=== PATIENT | female | born 1950 | race Caucasian/White ===

== ENCOUNTER → 2017-11-24 | Outpatient (CLI) | payer OTHER, MEDICARE ==
--- NOTE | 2017-11-25 10:30 | MM ---
Reason for exam: screening (asymptomatic). Last mammogram was performed 1 year and 9 months ago. History: Patient is postmenopausal. Family history of breast cancer in sister at age 68 and breast cancer in aunt. Took estrogen for 8 years. Physical Findings: A clinical breast exam by your physician is recommended on an annual basis and results should be correlated with mammographic findings. MG 3D Screening Mammo W/Cad Bilateral CC and MLO view(s) were taken. Prior study comparison: February 19, 2016, bilateral MG 3d screening mammo w/cad. January 09, 2014, bilateral MG screening mammo w CAD. The breast tissue is heterogeneously dense. This may lower the sensitivity of mammography. Stable benign calcifications. There is no discrete abnormality. No significant changes when compared with prior studies. ASSESSMENT: Benign, BI-RAD 2 RECOMMENDATION: Routine screening mammogram of both breasts in 1 year.
== END | disposition home or self-care (01) ==
LOC: RADMAMWWP 10:19
PROVIDERS: ATTEND Internal Medicine
DX: Z12.31 Encounter for screening mammogram for malignant neoplasm of breast (principal)
CPT/HCPCS: 77063; 77067

== ENCOUNTER → 2019-07-04 | Outpatient (CLI) | payer BC, MEDICARE ==
--- NOTE | 2019-07-09 09:39 | MM ---
Reason for exam: screening (asymptomatic). Last mammogram was performed 1 year and 7 months ago. History: Patient is postmenopausal. Family history of breast cancer in sister at age 68 and breast cancer in aunt. Took hormonal contraceptives for 10 years. Took estrogen for 8 years. Physical Findings: A clinical breast exam by your physician is recommended on an annual basis and results should be correlated with mammographic findings. MG 3D Screening Mammo W/Cad Bilateral CC and MLO view(s) were taken. Prior study comparison: November 24, 2017, bilateral MG 3d screening mammo w/cad. February 19, 2016, bilateral MG 3d screening mammo w/cad. The breast tissue is heterogeneously dense. This may lower the sensitivity of mammography. No significant changes when compared with prior studies. ASSESSMENT: Benign, BI-RAD 2 RECOMMENDATION: Routine screening mammogram of both breasts in 1 year.
== END | disposition home or self-care (01) ==
LOC: RADMAMWWP 06:53
PROVIDERS: ATTEND Internal Medicine
DX: Z12.31 Encounter for screening mammogram for malignant neoplasm of breast (principal)
CPT/HCPCS: 77063; 77067

== ENCOUNTER → 2020-10-14 | Outpatient (CLI) | payer BC, MEDICARE ==
[~2020-10-14] MED LIST: REGADENOSON 0.4 MG/5 ML SYRINGE IV PRN
--- NOTE | 2020-10-14 12:38 | NM ---
EXAMINATION TYPE: NM stress lexiscan cardiolite DATE OF EXAM: 10/14/2020 COMPARISON: NONE HISTORY: I 25.119 TECHNIQUE: After the intravenous administration of 9.5 mCi Tc 99m Sestamibi - Cardiolite resting SPE CT images acquired 45 minutes post injection. The patient received 0.4mg Lexiscan, 25.1 mCi Tc 99m Sestamibi - Stress images obtained [address] injection FINDINGS: Review of stress and rest SPECT images demonstrates decreased uptake along the septum towards the bas e the heart on stress as compared to rest images. Gated analysis shows questionable paradoxical apic al left ventricular wall motion with an estimated left ventricular ejection fraction of 72 %. IMPRESSION: Pharmacologically induced left ventricular myocardial ischemia, consider echocardiographic correlatio n for elevated section fraction and wall motion A Yellow level critical message alert has been initiated for Federico Skaggs MD via the [employer] Critical Results System on 10/14/2020 12:35 PM. This message alert has been sent to Federico Skaggs MD via the preferences provided by the clinician for the receipt of Radiology Critical Findings. Message ID [id number].
--- NOTE | 2020-10-15 08:29 | EST ---
EXERCISE STRESS PROCEDURE: Lexiscan. AGE: 69 SEX: F HT: 5' WT: 170 lbs. PROTOCOL: Lexiscan STAGE: N/A DURATION OF EXERCISE: 5 minutes HEART RATE REST: 68 BLOOD PRESSURE REST: 121/73 MAXIMUM HEART RATE ACHIEVED: 98 MAXIMUM BLOOD PRESSURE: 134/71 85% MPHR: 137 100% MPHR: 149 METS: N/A INDICATIONS: Shortness of breath. CLINICAL INFORMATION: Baseline EKG shows sinus rhythm, normal axis, normal intervals with poor R-wave progression. The patient was given intravenous Lexiscan as per protocol. Did not have chest pain or diagnostic ST-segment depression. CONCLUSIONS: 1. Negative stress test by EKG criteria. 2. Cardiolite portion of the stress test will be reported separately. MMODL / IJN: [id number] /
== END | disposition home or self-care (01) ==
LOC: RADNMMAIN 07:58
PROVIDERS: ATTEND Internal Medicine
DX: I25.9 Chronic ischemic heart disease, unspecified (principal)
CPT/HCPCS: 93017; 78452; A9500; J2785

== ENCOUNTER → 2020-10-23 | Day surgery (SDC) | payer BC, MEDICARE ==
[2020-10-22 10:51] VITALS: BMI 32.2
[~2020-10-23] MED LIST changes: +ALPRAZolam 0.25 MG TAB PO PRN; +ALPRAZolam 0.5 MG TAB PO PRN; +ASPIRIN 325 MG TAB PO STA; +ATORVASTATIN 80 MG TAB PO STA; +HEPARIN SODIUM 1,000 UN/ML (10ML VL) IV ONE; +HEPARIN SODIUM 1,000 UN/ML (10ML VL) ONE; +IOPAMIDOL-370 125ML BTL INJ ONE; +LEVOTHYROXINE 25 MCG TAB PO SCH; +LIDOCAINE 1% INJ 10MG/ML (20 ML MDV) ONE; +LIDOCAINE 1% INJ 10MG/ML (20 ML MDV) SQ ONE; +LORazepam 0.5 MG TAB PO SCH; +MIDAZOLAM 2 MG/2 ML VIAL IV ONE; +NITROGLYCERIN SL TABS 0.4 MG TAB SUBLINGUAL PRN; -REGADENOSON 0.4 MG/5 ML SYRINGE IV PRN; +RX INFO: IV CONTRAST WAS GIVEN 1 EACH MISC MISCELLANE PRN; +SODIUM CHLORIDE 0.9% 1,000 ML IV SCH; +SODIUM CHLORIDE 0.9% 1,000 ML in EMPTY BAG 1 BAG IV ONE; +VENLAFAXINE HCL ER 37.5 MG CAP PO SCH; +VERAPAMIL 2.5 MG/ML 2 ML AMP ONE; +VERAPAMIL SYRINGE (5 MG/10 ML) INTRAARTER ONE; +fentaNYL (PF) 50 MCG/ML 2 ML AMP IV ONE; +fentaNYL (PF) 50 MCG/ML 2 ML AMP ONE
[2020-10-23 06:44] LABS: Basophils # (A) 0.1 k/uL (0-0.2); Basophils % (A) 1 %; Eosinophils # (A) 0.2 k/uL (0-0.7); Eosinophils % (A) 2 %; HCT 40.2 % (34.0-46.0); HGB 14.1 gm/dL (11.4-16.0); Lymphocytes # (A) 2.2 k/uL (1.0-4.8); Lymphocytes % (A) 23 %; MCH 30.4 pg (25.0-35.0); MCV 86.9 fL (80.0-100.0); Mean Platelet Volume 7.1; Monocytes # (A) 0.5 k/uL (0-1.0); Monocytes % (A) 5 %; Neutrophils # (A) 6.7 k/uL (1.3-7.7); Neutrophils % (A) 69 %; Platelet Count 271 k/uL (150-450); RBC 4.62 m/uL (3.80-5.40); RDW 13.7 % (11.5-15.5); WBC 9.7 k/uL (3.8-10.6)
[2020-10-23 06:50] VITALS: RESP 16; TEMP 97.8
[2020-10-23 06:58] LABS: Calcium 9.3 mg/dL (8.4-10.2)
[2020-10-23 08:57] VITALS: PULSE 66
--- NOTE | 2020-10-23 09:37 | CC ---
CARDIAC CATHETERIZATION REPORT PROCEDURE PERFORMED: Cardiac catheterization. INDICATIONS: Mrs. Pena is a 69-year-old female who has been complaining of episode of chest discomfort at times exertional in pattern. She underwent myocardial perfusion imaging that revealed evidence of inducible ischemia. In view of that, recommendation was made regarding cardiac catheterization. The procedures, risks and complications were discussed with the patient, who was in full understanding and agreement. PROCEDURE: Patient was brought to the bean sprout laborer in a fasting semi-sedated state after receiving fentanyl and Benadryl and achieving moderate conscious sedated state. Using Xylocaine anesthesia and Seldinger technique, a 6-Paraguayan sheath was introduced in the right radial artery. Selective right and left coronary angiography performed using 5-Paraguayan 3.5 bend right and left Viviana catheter. Multiple views of the right coronary artery including hemiaxial views were obtained. Following that, a 5-Paraguayan tight pigtail catheter was introduced into the eft ventricle and pressures were calculated. Following that, catheter and sheath were removed. Hemostasis was obtained with deployment of a TR band. There was no immediate complication. Patient was returned to room in stable condition. Of note, the patient received 4000 units intravenous heparin as well as intra-arterial verapamil. FINDINGS: Left main: This is a short size vessel, bifurcating into left circumflex, left anterior descending artery. Left main coronary artery has no evidence of high-grade stenosis. Left anterior descending artery: This is a large-sized vessel reaching to the apex with a wraparound apex segment giving rise to 2 diagonal branches. The second one is larger in caliber. The left anterior descending artery as well as its branches have no evidence of obstructive coronary artery disease. Left circumflex: This is a nondominant vessel giving rise to a proximal large obtuse marginal branch. The second and third obtuse marginal branches are small in caliber. The left circumflex as well as its branches have no evidence of obstructive coronary artery disease. Right coronary artery: This is a dominant vessel, moderate in caliber, giving rise to a PDA and small PLV. The right coronary artery as well as branches have no evidence of obstructive coronary artery disease. LEFT VENTRICULOGRAM: Left ventriculogram was not performed. HEMODYNAMICS: There was no gradient across the aortic valve. The left ventricle end-diastolic pressure was 12-14 mmHg. CONCLUSION: 1. Normal coronary arteries. 2. Normal left ventricular end-diastolic pressure. RECOMMENDATION: In view of finding anatomy, we recommend continued medical therapy with aggressive coronary risk modifications that have been initiated. Those findings and recommendation were discussed with the patient and her family and they are in full understanding and agreement. Duration of sedation is 22 minutes. MMLUZL / IJN: [id number] /
--- NOTE | 2020-10-23 09:40 | LTR ---
10/23/2020 RE: Jessie Pena Dear Dr. Skaggs: I had the pleasure to perform cardiac catheterization on Mrs. Pena at [facility] on October 23, 2020. A full copy of the procedure note will be forwarded to you. In brief, she was found to have no evidence of obstructive coronary artery disease. Based on this finding, I recommend continue medical therapy with aggressive coronary risk factor modifications that has been initiated. Thank you again for allowing me to participate in this patient's care. Please feel free to call for any questions. Sincerely, MD NATY JiménezL / LUDINN: [id number] /
[2020-10-23 10:31] VITALS: BP 95/52
== END | disposition home or self-care (01) ==
LOC: CATHCVL 05:59
PROVIDERS: ATTEND Internal Medicine Interventional Cardiology
DX: R07.89 Other chest pain (principal); R43.9 Unspecified disturbances of smell and taste; R06.09 Other forms of dyspnea; G89.29 Other chronic pain; M54.9 Dorsalgia, unspecified; Z20.822 Contact with and (suspected) exposure to COVID-19; G62.9 Polyneuropathy, unspecified; Z88.1 Allergy status to other antibiotic agents; Z88.5 Allergy status to narcotic agent; Z88.2 Allergy status to sulfonamides; Z87.891 Personal history of nicotine dependence; Z79.82 Long term (current) use of aspirin; Z79.890 Hormone replacement therapy; Z79.899 Other long term (current) drug therapy
CPT/HCPCS: 93458; 80048; 85025; 87635; C1894; C1769; J2250; J2001; J3010; J1644; Q9967

== ENCOUNTER → 2020-10-30 | Outpatient (CLI) | payer BC, MEDICARE ==
--- NOTE | 2020-10-31 12:38 | MM ---
Reason for exam: screening (asymptomatic). Last mammogram was performed 1 year and 4 months ago. History: Patient is postmenopausal. Family history of breast cancer in aunt and breast cancer in sister at age 68. Took hormonal contraceptives for 10 years. Took estrogen for 8 years. Physical Findings: A clinical breast exam by your physician is recommended on an annual basis and results should be correlated with mammographic findings. MG 3D Screening Mammo W/Cad Bilateral CC and MLO view(s) were taken. Prior study comparison: July 04, 2019, bilateral MG 3d screening mammo w/cad. November 24, 2017, bilateral MG 3d screening mammo w/cad. There are scattered fibroglandular densities. ASSESSMENT: Negative, BI-RAD 1 RECOMMENDATION: Routine screening mammogram of both breasts in 1 year.
== END | disposition home or self-care (01) ==
LOC: RADMAMWWP 14:36
PROVIDERS: ATTEND Internal Medicine
DX: Z12.31 Encounter for screening mammogram for malignant neoplasm of breast (principal); Z78.0 Asymptomatic menopausal state; Z80.3 Family history of malignant neoplasm of breast
CPT/HCPCS: 77063; 77067

== ENCOUNTER → 2021-08-13 | Outpatient (CLI) | payer BC, MEDICARE ==
[2021-08-13 14:56] LABS: Basophils # (A) 0.06 X 10*3/uL (0.00-0.10); Basophils % (A) 0.8 %; Eosinophils # (A) 0.12 X 10*3/uL (0.04-0.35); Eosinophils % (A) 1.6 %; HCT 44.5 % (37.2-46.3); Immature Grans, Automated 0.3 %; Lymphocytes # (A) 1.82 X 10*3/uL (0.90-5.00); MCH 28.9 pg (27.0-32.0); MCHC 31.5 g/dL (32.0-37.0); MCV 91.8 fL (80.0-97.0); Mean Platelet Volume 10.6 fL (9.5-12.2); Monocytes # (A) 0.49 X 10*3/uL (0.20-1.00); Monocytes % (A) 6.5 %; NRBC Per 100 WBC 0 /100 WBCS (0.0-0.0); Neutrophils # (A) 5.08 X 10*3/uL (1.80-7.70); Neutrophils % (A) 66.8 %; Platelet Count 259 X 10*3/uL (140-440); RBC 4.85 X 10*6/uL (4.10-5.20); RDW 13.8 % (11.5-14.5); WBC 7.59 X 10*3/uL (4.50-10.00)
[2021-08-13 16:10] LABS: Anion Gap 12.4 mmol/L (10.00-18.00); Blood Urea Nitrogen 14.7 mg/dL (9.0-27.0); Carbon Dioxide 25.6 mmol/L (20.0-27.5); Non-African American GFR(CKD) 63.9 (60.0-200.0); Potassium 4.7 mmol/L (3.5-5.5)
== END | disposition home or self-care (01) ==
LOC: LABPAT 10:43
PROVIDERS: ATTEND Surgery
DX: Z01.812 Encounter for preprocedural laboratory examination (principal); R22.1 Localized swelling, mass and lump, neck
CPT/HCPCS: 80051; 82565; 84520; 85025

== ENCOUNTER 2021-08-21 05:59 | Day surgery (SDC) | payer BC, MEDICARE ==
[2021-08-20 10:05] VITALS: BMI 32.2
[~2021-08-21 05:59] MED LIST changes: -ALPRAZolam 0.25 MG TAB PO PRN; -ALPRAZolam 0.5 MG TAB PO PRN; -ASPIRIN 325 MG TAB PO STA; -ATORVASTATIN 80 MG TAB PO STA; -HEPARIN SODIUM 1,000 UN/ML (10ML VL) IV ONE; -HEPARIN SODIUM 1,000 UN/ML (10ML VL) ONE; -IOPAMIDOL-370 125ML BTL INJ ONE; -LEVOTHYROXINE 25 MCG TAB PO SCH; -LIDOCAINE 1% INJ 10MG/ML (20 ML MDV) ONE; -LIDOCAINE 1% INJ 10MG/ML (20 ML MDV) SQ ONE; -LORazepam 0.5 MG TAB PO SCH; -MIDAZOLAM 2 MG/2 ML VIAL IV ONE; -NITROGLYCERIN SL TABS 0.4 MG TAB SUBLINGUAL PRN; +Pre Op ABX Message 1 EACH MISC MISCELLANE ONE; -RX INFO: IV CONTRAST WAS GIVEN 1 EACH MISC MISCELLANE PRN; -SODIUM CHLORIDE 0.9% 1,000 ML IV SCH; -SODIUM CHLORIDE 0.9% 1,000 ML in EMPTY BAG 1 BAG IV ONE; -VENLAFAXINE HCL ER 37.5 MG CAP PO SCH; -VERAPAMIL 2.5 MG/ML 2 ML AMP ONE; -VERAPAMIL SYRINGE (5 MG/10 ML) INTRAARTER ONE; -fentaNYL (PF) 50 MCG/ML 2 ML AMP IV ONE; -fentaNYL (PF) 50 MCG/ML 2 ML AMP ONE
[2021-08-21] MEDS ORDERED: ONDANSETRON 4 MG/2 ML VIAL IVP ONE (06:13)
[2021-08-21] MEDS ORDERED: LACTATED RINGERS 1,000 ML IV SCH (06:13)
[2021-08-21] MEDS ORDERED: LIDOCAINE 1% (10MG/ML) FOR IV START INTRADERMA PRN (06:13)
[2021-08-21] MEDS ORDERED: MIDAZOLAM 2 MG/2 ML VIAL IV PRN (06:13)
[2021-08-21] MEDS ORDERED: HYDROmorphone 0.5 MG/0.5 ML SYRINGE IVP PRN (06:13)
[2021-08-21] MEDS ORDERED: DEXAMETHASONE SOD PHOSPHATE 4 MG/ML 1 ML VIAL IV ONE (06:13)
[2021-08-21] MEDS ORDERED: LIDOCAINE 1% INJ 10MG/ML (20 ML MDV) ONE ×2 (06:31→07:21)
[2021-08-21] MEDS ORDERED: MIDAZOLAM 2 MG/2 ML VIAL IVP ONE (06:56)
[2021-08-21] MEDS ORDERED: PROPOFOL 10 MG/ML 20 ML VIAL IV ONE (07:21)
[2021-08-21] MEDS ORDERED: SUCCINYLCHOLINE CHLORIDE 100 MG/5 ML SYR IV ONE (07:21)
[2021-08-21] MEDS ORDERED: fentaNYL (PF) 50 MCG/ML 2 ML AMP ONE (07:21)
[2021-08-21] MEDS ORDERED: SODIUM CHLORIDE 0.9% 50 ML with ceFAZolin 2,000 MG IV ONE ×2 (07:40)
[2021-08-21] MEDS ORDERED: LIDOCAINE 1% INJ 10MG/ML (20 ML MDV) SQ ONE (07:55)
--- NOTE | 2021-08-21 08:32 | P.OP ---
Date of Procedure: 08/21/21 Preoperative Diagnosis: Right neck mass Postoperative Diagnosis: same Procedure(s) Performed: Excision of right neck mass Anesthesia: SABINE Surgeon: Placido Ahumada Estimated Blood Loss (ml): 10 Pathology: other (right neck mass) Condition: stable Disposition: PACU Indications for Procedure: 70-year-old female originally presented to the office secondary to a right lateral neck mass that has been causing her discomfort. She states that it increases in size and sometimes and she'll need to take Motrin to decrease the swelling. She did undergo a CT a that demonstrated a superficial mass without any evidence of vascular involvement. I did discuss with her options to remove the mass she stated she would like to have it taken out in the operating room. Operative Findings: Cystlike structure with white calcified mass in the superficial fat of the neck Description of Procedure: After written informed consent was obtained the patient and all risks, benefits and complications were described the patient was brought to the operative suite and laid in supine position. The area of the right neck was prepped and draped in usual sterile fashion after appropriate anesthetic was performed per the anesthesiologist. A timeout was performed in normal fashion antibiotics were administered prior to incision. A transverse incision was then created across the mass with a 15 blade scalpel and dissection was carried down to the masslike structure. The structure was then dissected in circumferential manner. There appeared to be cystlike and this was removed with Metzenbaum scissors and passed off for pathology. Hemostasis was assured with electrocautery. The area was then copiously irrigated. Once hemostatic the incision was closed in a multilayer fashion with 3-0 Vicryl for the deep dermal and 4-0 Monocryl for the skin. Skin was then cleansed and dressed with. Patient tolerated procedure well was sent to PACU for recovery. Plan - Discharge Summary Discharge Rx Participant: No New Discharge Prescriptions: No Action Venlafaxine HCl ER [Effexor Xr] 75 mg PO DAILY Levothyroxine Sodium [Synthroid] 25 mcg PO DAILY Calcium Carbonate [Tums] 500 mg PO DIRECTED PRN PRN Reason: Heartburn Ibuprofen 800 mg PO DIRECTED PRN PRN Reason: Pain Aspirin [Adult Low Dose Aspirin EC] 81 mg PO DAILY amLODIPine BESYLATE [Norvasc] 2.5 mg PO DAILY Discharge Medication List Levothyroxine Sodium [Synthroid] 25 mcg PO DAILY 08/25/15 [History] Venlafaxine HCl ER [Effexor Xr] 75 mg PO DAILY 08/25/15 [History] Aspirin [Adult Low Dose Aspirin EC] 81 mg PO DAILY 08/20/21 [History] Calcium Carbonate [Tums] 500 mg PO DIRECTED PRN 08/20/21 [History] Ibuprofen 800 mg PO DIRECTED PRN 08/20/21 [History] amLODIPine BESYLATE [Norvasc] 2.5 mg PO DAILY 08/20/21 [History] Follow up Appointment(s)/Referral(s): Placido Ahumada DO [STAFF PHYSICIAN] - 2 Weeks Activity/Diet/Wound Care/Special Instructions: no heavy lifting greater that 15lbs x 1 week
[2021-08-21 08:47] VITALS: TEMP 97.7
[2021-08-21 09:37] VITALS: RESP 16
[2021-08-21 10:00] VITALS: BP 110/62; PULSE 74
== END 2021-08-21 10:26 | disposition home or self-care (01) ==
LOC: OR 05:59
PROVIDERS: ATTEND Surgery
DX: R22.1 Localized swelling, mass and lump, neck (principal); I10 Essential (primary) hypertension; E07.9 Disorder of thyroid, unspecified; Z79.82 Long term (current) use of aspirin; Z79.899 Other long term (current) drug therapy
CPT/HCPCS: 11421; 88305; J2250; J1100; J2405; J0690; J2001; J3010; J0330; J2704

== ENCOUNTER → 2021-08-27 | Outpatient (CLI) | payer BC, MEDICARE ==
--- NOTE | 2021-08-27 12:10 | XR ---
EXAMINATION TYPE: XR chest 2V DATE OF EXAM: 08/27/2021 COMPARISON: 09/04/2015 TECHNIQUE: PA and lateral views submitted. HISTORY: Cough FINDINGS: Heart size normal. There is right lower lobe infiltrate. No overt failure or pneumothorax. Arthropath y of the shoulders. Hyperinflation suggests COPD. Hypertrophic and degenerative change of the spine. IMPRESSION: 1. COPD with right lower lobe infiltrate.
== END | disposition home or self-care (01) ==
LOC: RADXRMAIN 11:22
PROVIDERS: ATTEND Internal Medicine
DX: J44.9 Chronic obstructive pulmonary disease, unspecified (principal); R91.8 Other nonspecific abnormal finding of lung field
CPT/HCPCS: 71046

== ENCOUNTER → 2021-09-22 | Day surgery (SDC) | payer BC, MEDICARE ==
[2021-09-21 13:53] VITALS: BMI 32.2
[~2021-09-22] MED LIST changes: +LACTATED RINGERS 1,000 ML IV SCH; +LIDOCAINE 1% (10MG/ML) FOR IV START INTRADERMA PRN; -Pre Op ABX Message 1 EACH MISC MISCELLANE ONE
[2021-09-22 13:27] VITALS: BP 131/69; PULSE 90; RESP 20; TEMP 98.2
--- NOTE | 2021-09-22 14:03 | P.PN ---
Subjective Progress Note Date: 09/22/21 This is a follow visit for this 70 years old female with a chronic history of a neck pain, and severe low back pain, she was evaluated last month at the pain clinic at [facility] and she was scheduled to have cervical epidural steroid injection, and the preop holding area today patient reported that most of her pain currently in the low back area, intensity of her pain is 10 out of 10 in the low back area, and 0-2 out of 10 in the cervical area, she denies any motor or sensory deficit in the upper or lower extremity, and she reported that the pain in the low back area is constant and increases with any activity interfere with the quality of life, and associated with numbness and ti ngling sensation in the lower extremity bilaterally but it's more prominent on the left side, she was treated in the past by Dr. Agosto ([facility] ), also patient was managed with the medication, Neurontin and Motrin, patient had MRI of the lumbar spine done at [facility] which showed that patient had L5-S1 disc herniation and severe bilateral neuroforaminal narrowing, and patient had L3 4 disc herniation. Objective - Vital Signs Vital signs: Vital Signs Temp 98.2 F 09/22/21 13:24 Pulse 90 09/22/21 13:24 Resp 20 09/22/21 13:24 BP 131/69 09/22/21 13:24 Pulse Ox 98 09/22/21 13:24 Intake & Output 09/21/21 09/22/21 09/22/21 18:59 06:59 18:59 Weight 74.843 kg 74.1 kg - Exam Physical Examinations : -Constitutiona : Cooperative , not in acute distress . -HEENT : nech : supple , no Lymphadenopathy , normal thyroid size . : eyes : no ptosis , no icterus, no photophobia . - neurologic : Cranial nerve II to XII intact , no focal n eurological deffecit . -psychatric : alert , oriented X 3 , appropriate affect , intact judgment and insight . -Lymphatic : no Lymphadenopathy . - musculoskeltal : Cervical Spine motor stregnth in the deltoid and biceps, normal right side , normal Left side motor stregnth biceps and the wrist extensors normal right side ,normal left side . motor stregnth in the triceps muscle . normal Right side , normal Left side deep tendon reflexes normal at the biceps , normal at Brachioradialis , normal at triceps. cervical facet loading test: Positive Bilaterally Spurling test= positive Right , positive left. Neck distraction test= positive Right , positive left. Radha sign= positive right, positive left . Lumber spine moter stegnth lower extremities ,thigh and legs 5/5 Right side , 5/5 Left side deep tendon reflexes : normal Knee Jerk , normal ankle Jerk lumber facet Loading Test =positive Right , positive Left Range of motion of the lumbar spine Flexion 30 degrees, extension 10 degrees strait leg raising test = positive at 30 degree the left side and its possible to 60 on the right side Fabere test= positive Right , and positive LT . Sever tenderness over the Sacroiliac joint on the Right , and Left sides Gaenslen test= positive right ,and positive left . Seated flexion test= positive right ,and positive Left . Distraction test= positive bilaterally Sacroiliac compression test= positive bilaterally MRI of the lumbar spine= L3 4 disc herniation, L5-S1 disc herniation with severe neuroforaminal narrowing, grade 1 anterolisthesis Assessment and Plan Plan: Assessment and plan=1-lumbar radiculopathy. 2-lumbar disc herniation. 3-lumbar foraminal stenosis. 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 5-bilateral sacroiliitis. 6-cervical degenerative disc disease Patient was scheduled to have cervical epidural steroid injection, she reported that currently most of her pain in the low back area She'll wish to have treatment in the lumbar area instead of the cervical spine, because over the last few weeks, she has more pain in the lumbar area than the cervical area Patient could benefit from bilateral transforaminal epidural steroid injection at L5-S1 levels. Procedure cannot be done today because we need insurance prior authorization Time with Patient: Less than 30
== END ==
LOC: ORPAIN 13:05
PROVIDERS: ATTEND Specialist
DX: G89.29 Other chronic pain (principal); M46.1 Sacroiliitis, not elsewhere classified; M48.061 Spinal stenosis, lumbar region without neurogenic claudication; M51.16 Intervertebral disc disorders with radiculopathy, lumbar region; Z53.8 Procedure and treatment not carried out for other reasons

== ENCOUNTER → 2021-09-24 | Day surgery (SDC) | payer BC, MEDICARE ==
[~2021-09-24] MED LIST changes: +IOPAMIDOL M200 10 ML VIAL ONE; +IV FLUID CONTINUATION 700 ML IV ONE; +LACTATED RINGERS 1,000 ML IV ONE; -LACTATED RINGERS 1,000 ML IV SCH; +LIDOCAINE 1% (10MG/ML) FOR IV START INTRADERMA ONE; -LIDOCAINE 1% (10MG/ML) FOR IV START INTRADERMA PRN; +MIDAZOLAM 2 MG/2 ML VIAL ONE; +fentaNYL (PF) 50 MCG/ML 2 ML AMP ONE; +methylPREDNISolone ACETATE 40 MG/ML 1 ML VIAL ONE
[2021-09-24 09:52] VITALS: RESP 18; TEMP 98.1
--- NOTE | 2021-09-24 10:51 | P.PCN ---
Date of Procedure: 09/24/21 Procedure(s) Performed: PREOPERATIVE DIAGNOSIS:1- Lumbar radiculopathy .2-lumbar degenerative disc disease. 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 4-lumbar spondylosis with lumbar facet arthropathy without myelopathy POSTOPERATIVE DIAGNOSIS: Same as preoperative diagnoses. PROCEDURE 1. Transforaminal epidural steroid injection under fluoroscopic guidance at bilateral L5-S1 level. (Fluoroscopy images stored on file in the radiology Department ) 2. Lumbar epidurogram . ANESTHESIA: Local with 1% lidocaine 3 ml , moderate sedation with intravenous Versed 2 mg and fentanyle 100 micrograms. EBL: Minimal PROCEDURE INDICATION: The patient with low back pain and radiculopathy symptoms unresponsive to conservative treatment. PROCEDURE DESCRIPTION / TECHNIQUE: The patient was seen and identified in the preoperative area. Risks, benefits, complications, and alternatives were discussed with the patient. The patient agreed to proceed with the procedure and signed the consent. IV was started, and vital signs were stable. Patient was taken to the OR and time out was completed. The patient was placed in the prone position on procedure table and a pillow was placed under the abdomen to reduce lumbar lordosis. The lumbosacral area was prepped and draped in the usual sterile fashion. Critical pause was taken. Vital signs were closely monitored during the procedure. Conscious sedation was used during the procedure to decrease patient s anxiety. Using oblique fluoroscopy, the chin of the `Kajaly dog at right L5-S1 level was identified, and the skin and deeper tissues just below was localized with 1% lidocaine. Subsequently, a 22-gauge 5-inch spinal needle was advanced under a tunneled view fluoroscopic guidance just underneath the chin of the `Kajaly dog at the right L5-S1 Under lateral fluoroscopy, the needle was then advanced to the posterior border of the interforaminal space. After negative aspiration of CSF and blood and with no paresthesias, 1 mL Isovue 200 contrast dye was injected excellent epidurogram and outlining of the nerve root Subsequently, 3 mL of block solution containing 30 mg Depo-Medrol and 2 mL of 0.9% normal saline PF was injected. Needle was removed and the same procedure was repeated at the left L5-S1 level . At the end of the procedure, skin was cleansed, and bandages were applied. COMPLICATIONS:none DISPOSITION / PLANS: The patient was placed in a supine position and transferred to the recovery area in a stable condition for observation. There was no evidence of lower extremity motor or sensory deficit after the procedure. Patient was discharged from the recovery room after meeting discharge criteria. Home discharge instructions were given to the patient by the staff. The patient was reexamined prior to discharge.
[2021-09-24 11:14] VITALS: BP 122/80; PULSE 77
--- NOTE | 2021-09-24 12:10 | FL ---
EXAMINATION TYPE: FL guided pain mgmt statistic DATE OF EXAM: 09/24/2021 HISTORY: Fluoroscopy time 40 seconds of fluoroscopy provided. IMPRESSION: 1. Fluoroscopy time.
== END ==
LOC: ORPAIN 09:21
PROVIDERS: ATTEND Specialist
DX: M51.16 Intervertebral disc disorders with radiculopathy, lumbar region (principal); M47.816 Spondylosis without myelopathy or radiculopathy, lumbar region
CPT/HCPCS: 64483; J2250; J1030; J3010; Q9966; 99152

== ENCOUNTER → 2021-10-15 | Outpatient (CLI) | payer BC, MEDICARE ==
--- NOTE | 2021-10-15 15:50 | P.PN ---
Subjective Progress Note Date: 10/15/21 Principal diagnosis: A 70 yr old female with at side with a history of severe and chronic low back pain secondary to lumbar degenerative disc diseases and lumbar spondylosis with facet arthropathy presents today for evaluation s/p R TFESI L5- S1. Pt states she experienced 50% pain relief x 3 weeks s/p procedure. Pain level is currently at 7/10 in intensity of a pressure-like, achy, constant pain, localized to the lower aspect of her lumbar spine with radiation of pain left and right of midline as well as shooting pain down the LEs, L>R. Pain is provoked by weight bearing activities. Pain is alleviated with medications (Ibuprofen, Aleve OTC, THC edibles), ice, CBD topicals, injections, PT "a long time ago," sitting, reclining and rest. Interventional pain procedures completed include BL TFESI L5-S1 x1 Patient is currently on Aleve OTC, Ibuprofen. Patient denies any side effects of the medication(s), denies excessive drowsiness or sleepiness, denies suicidal ideation and reports that the current pain medication is helping to control the pain and improve activities of daily living. Patient denies any motor or sensory deficits. Patient denies any fever or night sweats, denies any change in the bowel movements or urination. Physical Examination: -Constitutional: Cooperative. Not in acute distress . -HEENT: Neck is supple. No lymphadenopathy. No thyromegaly. Normal thyroid size. Eyes: No ptosis , no icterus, no photophobia. ENT: No auditory deficits. Normal oropharynx. No Thrush. - Respiratory: Chest clear to auscultations bilaterally. No wheezing. No rhonchi. - Cardiovascular: Regular rate and rhythm. S1 / S2 , no S3 , no S4. - Gastrointestinal: Abdomen soft no tenderness. Bowel sounds positive in all four quadrants. No organomegaly. - Genitourinary: Deferred. - Neurologic: Cranial nerve II to XII intact. No focal neurological deficits. - Psychatric: Alert & oriented x 3. Matching mood & appropriate affect. Judgment and insight intact. - Lymphatic: No Lymphadenopathy. - Musculoskeletal: Cervical spine: Muscle bulk/ tone/ strength in the bilateral upper extremities normal Vertebral body tenderness to palpation over Facet loading test positive Thoracic spine Muscle bulk / tone/ strength in the bilateral paraspinal muscles normal Vertebral body tender to palpation over Facet loading test positive Lumbar spine: Motor bulk/ tone/ strength lower extremities , thigh and legs : 5/5 Deep tendon reflexes : Normal Knee Jerk. Normal Ankle Jerk . Vertebral body tenderness to palpation over L5 Lumbar Facet Loading Test positive Straight Leg Raise: positive at 30 degrees right side/ left side Gaenslen's Test positive Sacral spine : Severe tenderness over the Sacroiliac joint: right side / left side Range of motion: Flexion of the lumbar spine <60 degrees Range of motion: Extension of the lumbar spine <20 degrees Gaenslen's Test positive Star's Test positive Afshin test: positive right side / left side Thigh Thrust Test Sacral Thrust Test Assessment and plan: Chronic low back pain secondary to lumbar degenerative disc disease , lumbar spondylosis with facet arthropathy without myelopathy Recommendation of BL TFESI L5-S1 #2. May need a series of injections, up to 3 within a 6 mo period, for optimal pain relief. Risks, benefits of procedure discussed and pt verbalized understanding. Denies a medical history of diabetes. Admits to ASA 81mg use. Protocol for discontinuation/ continuation of medications carlos procedure discussed. All patient questions answered MAPS reviewed and it was appropriate. I have spent 31 minutes on patient care today. Dr Montenegro was available by phone for the evaluation of this patient. The time was used to review the medical records including relevant urine studies and Prescription history (MAPs), review of the available imaging, evaluation and examination of the patient, coordination of care with the medical staff and if applicable referring physicians, as well as creation of the medical record PQRS Measure Charge Sheet PQRS Narrative: Smoking Status Never smoker Hx Alcohol Use (MH) No Home Medications: Ambulatory Orders Levothyroxine Sodium [Synthroid] 25 mcg PO DAILY 08/25/15 Venlafaxine HCl ER [Effexor Xr] 75 mg PO DAILY 08/25/15 Aspirin [Adult Low Dose Aspirin EC] 81 mg PO DAILY 08/20/21 Calcium Carbonate [Tums] 500 mg PO DIRECTED PRN 08/20/21 Ibuprofen 800 mg PO DIRECTED PRN 08/20/21 amLODIPine BESYLATE [Norvasc] 2.5 mg PO DAILY 08/20/21
[2021-10-15 16:05] VITALS: BP 129/79; PULSE 80; RESP 18
== END ==
LOC: PNWHC3 14:09
PROVIDERS: ATTEND Specialist
DX: M51.36 Other intervertebral disc degeneration, lumbar region (principal); M47.816 Spondylosis without myelopathy or radiculopathy, lumbar region; G89.29 Other chronic pain; Z88.1 Allergy status to other antibiotic agents; Z88.2 Allergy status to sulfonamides; Z88.5 Allergy status to narcotic agent
CPT/HCPCS: 99211

== ENCOUNTER → 2021-11-06 | Outpatient (CLI) | payer BC, MEDICARE ==
--- NOTE | 2021-11-06 10:42 | XR ---
EXAMINATION TYPE: XR chest 2V DATE OF EXAM: 11/06/2021 COMPARISON: Chest x-ray 08/27/2021, CT 01/06/2012 HISTORY: UO7.1, cough and covid infection TECHNIQUE: Frontal and lateral views of the chest are obtained. FINDINGS: Strand-like densities are present at the lung bases similar to prior exam, probable scarri ng. There is no evident pneumothorax or pleural effusion. Cardiac silhouette is stable. Suspect there is some bronchial wall thickening. IMPRESSION: Findings of the lung bases are felt likely to be chronic, represent scarring, follow-up as indicated, difficult to exclude bronchitis
== END | disposition home or self-care (01) ==
LOC: RADXRMAIN 09:48
PROVIDERS: ATTEND Internal Medicine
DX: U07.1 COVID-19 (principal); J98.4 Other disorders of lung
CPT/HCPCS: 71046

== ENCOUNTER → 2021-11-25 | Outpatient (CLI) | payer BC, MEDICARE ==
--- NOTE | 2021-11-25 12:17 | CT ---
EXAMINATION TYPE: CT chest wo con DATE OF EXAM: 11/25/2021 COMPARISON: None HISTORY: Hx of covid, continuing cough. CT DLP: 506.2 mGycm. Automated Exposure Control for Dose Reduction was Utilized. TECHNIQUE: CT scan high-resolution of the thorax is performed without IV contrast. FINDINGS: LUNGS: The lungs are grossly clear, there is no concerning parenchymal mass or nodule identified. T here is no pleural effusion or pneumothorax seen. The tracheobronchial tree is patent. Biapical pleu ral thickening. There is a basilar central bronchiectasis and subsegmental areas of consolidation margaret aterally most coarse scarring. No significant interlobular septal thickening to suggest chronic inter stitial lung disease 5 mm nodule right upper lobe extending well. MEDIASTINUM: Lack of IV contrast is noted to limit evaluation for mediastinal and especially hilar ad enopathy. There are no definitive greater than 1 cm hilar or mediastinal lymph nodes. No cardiomega ly or pericardial effusion is seen. Atherosclerotic change of the aorta is normal caliber. OTHER: Splenic granuloma. Hypertrophic changes. Small hiatal calcification. IMPRESSION: 1. Basilar mild bronchiectasis with scattered areas of scarring or subsegmental atelectasis bilateral ly. 2. Incidental note made of a tiny 5 mm right upper lobe pulmonary nodule too small to characterize. R ecommend 12 month follow-up standard CT to confirm stability. Could potentially be related to high re solution technique and partial volume averaging.
== END | disposition home or self-care (01) ==
LOC: RADCTMAIN 11:42
PROVIDERS: ATTEND Internal Medicine
DX: J98.11 Atelectasis (principal); R91.1 Solitary pulmonary nodule; J47.9 Bronchiectasis, uncomplicated
CPT/HCPCS: 71250

== ENCOUNTER 2021-12-01 08:43 | Day surgery (SDC) | payer BC, MEDICARE ==
[2021-11-12 11:48] VITALS: BMI 31.2
[~2021-12-01 08:43] MED LIST changes: -IOPAMIDOL M200 10 ML VIAL ONE; -IV FLUID CONTINUATION 700 ML IV ONE; -LACTATED RINGERS 1,000 ML IV ONE; +LACTATED RINGERS 1,000 ML IV SCH; -LIDOCAINE 1% (10MG/ML) FOR IV START INTRADERMA ONE; +LIDOCAINE 1% (10MG/ML) FOR IV START INTRADERMA PRN; -MIDAZOLAM 2 MG/2 ML VIAL ONE; -fentaNYL (PF) 50 MCG/ML 2 ML AMP ONE; -methylPREDNISolone ACETATE 40 MG/ML 1 ML VIAL ONE
[2021-12-01 09:09] VITALS: RESP 16; TEMP 98.6
[2021-12-01] MEDS ORDERED: fentaNYL (PF) 50 MCG/ML 2 ML AMP ONE (09:40)
[2021-12-01] MEDS ORDERED: MIDAZOLAM 2 MG/2 ML VIAL ONE (09:40)
[2021-12-01] MEDS ORDERED: methylPREDNISolone ACETATE 80 MG/ML 1 ML VIAL ONE (09:40)
[2021-12-01] MEDS ORDERED: IOPAMIDOL M200 10 ML VIAL ONE (09:40)
--- NOTE | 2021-12-01 10:01 | P.PCN ---
Date of Procedure: 12/01/21 Procedure(s) Performed: PREOPERATIVE DIAGNOSIS:1- Lumbar radiculopathy .2-lumbar degenerative disc disease. 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 4-lumbar spondylosis with lumbar facet arthropathy without myelopathy POSTOPERATIVE DIAGNOSIS: Same as preoperative diagnoses. PROCEDURE 1. Transforaminal epidural steroid injection under fluoroscopic guidance at bilateral L5-S1 level. (Fluoroscopy images stored on file in the radiology Department ) 2. Lumbar epidurogram . ANESTHESIA: Local with 1% lidocaine 3 ml , moderate sedation with intravenous Versed 2 mg and fentanyle 100 micrograms. EBL: Minimal PROCEDURE INDICATION: The patient with low back pain and radiculopathy symptoms unresponsive to conservative treatment. PROCEDURE DESCRIPTION / TECHNIQUE: The patient was seen and identified in the preoperative area. Risks, benefits, complications, and alternatives were discussed with the patient. The patient agreed to proceed with the procedure and signed the consent. IV was started, and vital signs were stable. Patient was taken to the OR and time out was completed. The patient was placed in the prone position on procedure table and a pillow was placed under the abdomen to reduce lumbar lordosis. The lumbosacral area was prepped and draped in the usual sterile fashion. Critical pause was taken. Vital signs were closely monitored during the procedure. Conscious sedation was used during the procedure to decrease patient s anxiety. Using oblique fluoroscopy, the chin of the `Kajaly dog at right L5-S1 level was identified, and the skin and deeper tissues just below was localized with 1% lidocaine. Subsequently, a 22-gauge 5-inch spinal needle was advanced under a tunneled view fluoroscopic guidance just underneath the chin of the `Kajaly dog at the right L5-S1 Under lateral fluoroscopy, the needle was then advanced to the posterior border of the interforaminal space. After negative aspiration of CSF and blood and with no paresthesias, 1 mL Isovue 200 contrast dye was injected excellent epidurogram and outlining of the nerve root Subsequently, 3 mL of block solution containing 30 mg Depo-Medrol and 2 mL of 0.9% normal saline PF was injected. Needle was removed and the same procedure was repeated at the left L5-S1 level . At the end of the procedure, skin was cleansed, and bandages were applied. COMPLICATIONS:none DISPOSITION / PLANS: The patient was placed in a supine position and transferred to the recovery area in a stable condition for observation. There was no evidence of lower extremity motor or sensory deficit after the procedure. Patient was discharged from the recovery room after meeting discharge criteria. Home discharge instructions were given to the patient by the staff. The patient was reexamined prior to discharge.
[2021-12-01] MEDS ORDERED: IV FLUID CONTINUATION 1,000 ML IV ONE (10:08)
--- NOTE | 2021-12-01 10:53 | FL ---
Fluoroscopy HISTORY: Pain 30 seconds fluoroscopy time supplied to the referring clinician. 2 intraoperative C-arm images docum ent the procedure. See dictated report from anesthesia.
[2021-12-01 10:58] VITALS: BP 125/66; PULSE 79
== END 2021-12-01 11:17 | disposition home or self-care (01) ==
LOC: ORPAIN 08:43
PROVIDERS: ATTEND Specialist
DX: M47.26 Other spondylosis with radiculopathy, lumbar region (principal); M51.16 Intervertebral disc disorders with radiculopathy, lumbar region; F41.9 Anxiety disorder, unspecified; Z88.2 Allergy status to sulfonamides; Z88.5 Allergy status to narcotic agent; Z88.3 Allergy status to other anti-infective agents; Z79.890 Hormone replacement therapy; Z79.899 Other long term (current) drug therapy; Z79.82 Long term (current) use of aspirin; Z80.3 Family history of malignant neoplasm of breast
CPT/HCPCS: 64483; J2250; J1040; J3010; Q9966; 99152

== ENCOUNTER → 2021-12-17 | Outpatient (CLI) | payer BC, MEDICARE ==
[2021-12-17 14:57] VITALS: BP 128/77; PULSE 95; RESP 18
--- NOTE | 2021-12-17 15:04 | P.PN ---
Subjective Progress Note Date: 12/17/21 His follow-up visit for this 71 years old female with a history of severe and chronic low back pain and neck pain, status post lumbar epidural steroid injection 2, patient reported that she had minimal benefit and only for short- term after each injection, pain is continuous localized in the low back area , she had some numbness and tingling sensation in the lower extremity, the pain is managed with Motrin and CBD Vermes and she continued to have pain intensity of the pain interfere with her quality of life and activity of daily livings, Physical Examinations : -Constitutiona : Cooperative , not in acute distress . -HEENT : nech : supple , no Lymphadenopathy , normal thyroid size . : eyes : no ptosis , no icterus, no photophobia . - neurologic : Cranial nerve II to XII intact , no focal neurological deffecit . -psychatric : alert , oriented X 3 , appropriate affect , intact judgment and insight . -Lymphatic : no Lymphadenopathy . - musculoskeltal : Cervical Spine motor stregnth in the deltoid and biceps, normal right side , normal Left side motor stregnth biceps and the wrist extensors normal right side ,normal left side . motor stregnth in the triceps muscle . normal Right side , normal Left side deep tendon reflexes normal at the biceps , normal at Brachioradialis , normal at triceps. cervical facet loading test: Positive Bilaterally Spurling test= positive Right , positive left. Neck distraction test= positive Right , positive left. Radha sign= positive right, positive left . Lumber spine moter stegnth lower extremities ,thigh and legs 5/5 Right side , 5/5 Left side deep tendon reflexes : normal Knee Jerk , normal ankle Jerk lumber facet Loading Test =positive Right , positive Left Range of motion of the lumbar spine Flexion 30 degrees, extension 10 degrees strait leg raising test = positive at 30 degree the left side and its possible to 60 on the right side Fabere test= positive Right , and positive LT . Sever tenderness over the Sacroiliac joint on the Right , and Left sides Gaenslen test= positive right ,and positive left . Seated flexion test= positive right ,and positive Left . Distraction test= positive bilaterally Sacroiliac compression test= positive bilaterally MRI of the lumbar spine= L3 4 disc herniation, L5-S1 disc herniation with severe neuroforaminal narrowing, grade 1 anterolisthesis and multilevel lumbar facet arthropathy Assessment and plan=1-lumbar spondylosis with lumbar facet arthropathy 2-lumbar disc herniation. 3-lumbar foraminal stenosis. 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 5-bilateral sacroiliitis. 6-cervical degenerative disease Patient continued to have severe low back pain after epidural steroid injection x2 Shimp will be good candidate to have diagnostic medial branch block lumbar area at L4 5 , L5-S1 bilaterally. - PQRS measures = - Patient's medications are documented in the chart. -Tobacco use is negative and counseling.Given. -Patient's has not received pneumococcal vaccine. -Advanced care planning discussed, patient not eligible. -Opiate contract not signed. -Pain positive and follow-up visit/procedure is scheduled. -Patient's blood pressure measured [ ] , and documented in the record ,and patient will follow up with the primary care. -Patient's weight was measured and body mass index [ ] above the normal limits and counseling was done. and patient instructed to follow-up with the primary care physician. -Patient was not identified as an unhealthy alcohol user Objective - Vital Signs Vital signs: Vital Signs Temp Pulse 95 12/17/21 14:48 Resp 18 12/17/21 14:48 BP 128/77 12/17/21 14:48 Pulse Ox 97 12/17/21 14:48 FiO2 Intake & Output 12/16/21 12/17/21 12/17/21 18:59 06:59 18:59 Weight 72.575 kg
== END ==
LOC: PNWHC3 14:24
PROVIDERS: ATTEND Specialist
DX: M47.816 Spondylosis without myelopathy or radiculopathy, lumbar region (principal); M51.26 Other intervertebral disc displacement, lumbar region; M48.061 Spinal stenosis, lumbar region without neurogenic claudication; M96.1 Postlaminectomy syndrome, not elsewhere classified; M46.1 Sacroiliitis, not elsewhere classified; M50.30 Other cervical disc degeneration, unspecified cervical region; Z88.1 Allergy status to other antibiotic agents; Z88.2 Allergy status to sulfonamides; Z88.5 Allergy status to narcotic agent
CPT/HCPCS: 99211

== ENCOUNTER → 2022-01-08 | Outpatient (CLI) | payer BC, MEDICARE ==
--- NOTE | 2022-01-11 07:58 | MM ---
Reason for Exam: Screening (asymptomatic). Last mammogram was performed 1 year(s) and 2 month(s) ago. Patient History: Menarche at age 14. First Full-Term at age 23. Left ovary removed at age 43. Right ovary removed at age 43. Hysterectomy at age 43. Postmenopausal. Patient used Estrogen for 8 years. Patient used Hormonal Contraceptives for 10 years. Maternal aunt had breast cancer. Sister had breast cancer, age 68. Risk Values: Ana 5 year model risk: 3.2%. NCI Lifetime model risk: 7.7%. Prior Study Comparison: 01/09/2014 Bilateral Screening Mammogram, [facility]. 02/19/2016 Bilateral Screening Mammogram, [facility]. 11/24/2017 Bilateral Screening Mammogram, [facility]. 07/04/2019 Bilateral Screening Mammogram, [facility]. 10/30/2020 Bilateral Screening Mammogram, [facility]. Tissue Density: The breast tissue is heterogeneously dense. This may lower the sensitivity of mammography. Findings: Analyzed By CAD. There is no suspicious group of microcalcifications or new suspicious mass in either breast. Overall Assessment: Negative, BI-RAD 1 Management: Screening Mammogram of both breasts in 1 year. A clinical breast exam by your physician is recommended on an annual basis and results should be correlated with mammographic findings. Electronically signed and approved by: Ramon Green M.D. Radiologis
== END | disposition home or self-care (01) ==
LOC: RADMAMWWP 13:26
PROVIDERS: ATTEND Internal Medicine
DX: Z12.31 Encounter for screening mammogram for malignant neoplasm of breast (principal); Z78.0 Asymptomatic menopausal state; Z80.3 Family history of malignant neoplasm of breast
CPT/HCPCS: 77063; 77067

== ENCOUNTER 2022-01-15 09:08 | Day surgery (SDC) | payer BC, MEDICARE ==
[2022-01-14 13:28] VITALS: BMI 32.2
[2022-01-15 09:35] VITALS: TEMP 98.2
[2022-01-15] MEDS ORDERED: methylPREDNISolone ACETATE 40 MG/ML 1 ML VIAL ONE (10:10)
[2022-01-15] MEDS ORDERED: ROPIVACAINE 5 MG/ML 20 ML AMPULE ONE (10:10)
[2022-01-15] MEDS ORDERED: fentaNYL (PF) 50 MCG/ML 2 ML AMP ONE (10:12)
[2022-01-15] MEDS ORDERED: MIDAZOLAM 2 MG/2 ML VIAL ONE (10:12)
--- NOTE | 2022-01-15 10:29 | P.PCN ---
Date of Procedure: 01/15/22 Procedure(s) Performed: PREOPERATIVE DIAGNOSIS : 1- Lumbar spondylosis with Facet Arthropathy without myelopathy . 2- Lumber degenerative disc disease POSTOPERATIVE DIAGNOSIS: 1- Lumbar spondylosis with Facet Arthropathy without myelopathy . 2- Lumber degenerative disc disease PROCEDURE: Diagnostic bilateral L3 , L4 , and L5 medial branch block under fluoroscopy guidance(fluoroscopy images available in the radiology Department ) ( To target the facet joint between Bilateral L4-5 , and L5-S1 )# 1st ANESTHESIA:, Monitored anesthesia care as per anesthesia department. EBL: Minimal COMPLICATION: None PROCEDURE INDICATION: Chronic low back pain secondary to Facet arthropathy unresponsive to conservative treatment. PROCEDURE DESCRIPTION: the patient was seen and identified in the preop holding area , risks and benefits and possible complications of the procedure and alternative were discussed with the patient, and the patient agreed to proceed with the procedure and signed the consent and vital signs monitored during the procedure and fluoroscopy was used to maximize the benefit and accuracy of the needle placement, and sedation was given to decrease patient anxiety, patient was taken to the procedure room and placed in prone position vital signs monitored in the back prepped with chlorhexidine X3 then under strict sterile technique using a right oblique fluoroscopy ,the junction of the transverse process and the superior articulating process of the right L3 , L4 , and L5 vertebra which corresponding to the fluoroscopy image of the eye of the Abhishek dog on the block side for the medial branches and subsequently , after local infiltration of skin and subcu tissuies with Ropivacaine 0.5 % , one mL at each level ,then 22-gauge Quincke-type needles , 3 needle was used , each one of them placed at the junction of the base of the transverse process and the superior articular process at the appropriate level, and the needle was advanced until the periosteum contacted, needle placement confirmed with AP oblique and lateral view and after appropriate needle placement confirmed, and after negative aspiration for heme and CSF and there was no paresthesia 1-1/2 mL of Ropivacaine 0.5% mixed with 20 mg Depo-Medrol , then half mL injected at each level after negative aspiration the needle subsequently removed and the same procedure repeated for the left side at left side at L3 , L4 and L5 levels. At the end of the procedure and the needles removed and a bandage applied after the skin was cleaned the cleaning solution patient taken to recovery room in stable condition and monitors in the recovery room for 20-30 minutes and discharged home in stable condition after discharge criteria met and patient will follow up with the pain clinic in 2-4 weeks
[2022-01-15] MEDS ORDERED: IV FLUID CONTINUATION 1,000 ML IV ONE (10:33)
[2022-01-15 10:35] VITALS: RESP 16
[2022-01-15 10:49] VITALS: BP 133/71; PULSE 75
--- NOTE | 2022-01-15 10:51 | FL ---
EXAMINATION TYPE: FL guided pain mgmt statistic DATE OF EXAM: 01/15/2022 HISTORY: Fluoroscopy time 12 seconds of fluoroscopy provided. IMPRESSION: 1. Fluoroscopy time.
== END 2022-01-15 11:08 | disposition home or self-care (01) ==
LOC: ORPAIN 09:08
PROVIDERS: ATTEND Specialist
DX: M47.816 Spondylosis without myelopathy or radiculopathy, lumbar region (principal); M51.36 Other intervertebral disc degeneration, lumbar region; M54.50 Low back pain, unspecified; G89.29 Other chronic pain; F41.9 Anxiety disorder, unspecified; I10 Essential (primary) hypertension; E78.2 Mixed hyperlipidemia; J44.9 Chronic obstructive pulmonary disease, unspecified; E07.9 Disorder of thyroid, unspecified; K21.9 Gastro-esophageal reflux disease without esophagitis; M19.90 Unspecified osteoarthritis, unspecified site; Z90.710 Acquired absence of both cervix and uterus; Z88.1 Allergy status to other antibiotic agents; Z88.2 Allergy status to sulfonamides; Z98.890 Other specified postprocedural states; Z79.899 Other long term (current) drug therapy
CPT/HCPCS: 64493; 64494 ×2; J2250; J1030; J3010; J2795

== ENCOUNTER → 2022-01-27 | Outpatient (CLI) | payer BC, MEDICARE ==
[2022-01-27 14:34] VITALS: BP 127/78; PULSE 76; RESP 18; TEMP 98
--- NOTE | 2022-01-27 14:41 | P.PAINPG ---
PQRS Measure Charge Sheet Comment: A 71 yr old female w at side with a history of severe and chronic low back pain secondary to lumbar degenerative disc diseases and lumbar spondylosis with facet arthropathy without myelopathy presents today for evaluation s/p BL MBB L3-L5 #1. Pt states she experienced 100% pain relief x 2 days s/p procedure. Pain level is currently at 3/10 in intensity, constant, localized in the lower lumbar spine, dull/ achy in character w sharp/ shooting towards the BLEs. Pain is provoked as high as 7/10 by standing/ walking for periods of 30 min or more. Pain is alleviated with medications, "Cannabites", injections, ice, PT 10 yrs ago, sitting, repositioning and rest. Interventional pain procedures completed include BL MBB L3-5 x1, BL TFESI L4-5 x1, AURELIANO C4-5 x1. Patient is currently on Ibuprofen Patient denies any side effects of the medication(s), denies excessive drowsiness or sleepiness, denies suicidal ideation and reports that the current pain medication is helping to control the pain and improve activities of daily living. Patient denies any motor or sensory deficits. Patient denies any fever or night sweats, denies any change in the bowel movements or urination. Physical Examination: -Constitutional: Cooperative. Not in acute distress . - Neurologic: Cranial nerve II to XII intact. No focal neurological deficits. - Psychatric: Alert & oriented x 3. Matching mood & appropriate affect. Judgment and insight intact. - Musculoskeletal: Cervical spine: Muscle bulk/ tone/ strength in the bilateral upper extremities normal Vertebral body tenderness to palpation over Spurling test positive Distraction test positive Facet loading test positive Thoracic spine Muscle bulk / tone/ strength in the bilateral paraspinal muscles normal Vertebral body tender to palpation over Facet loading test positive Lumbar spine: Motor bulk/ tone/ strength lower extremities , thigh and legs : 5/5 Deep tendon reflexes : Normal Knee Jerk. Normal Ankle Jerk . Vertebral body tenderness to palpation over Lumbar Facet Loading Test positive w jump reflex over BL L4-L5, L5-S1 on palpation Straight Leg Raise: positive at 30 degrees right side/ left side Gaenslen's Test positive Sacral spine : Severe tenderness over the Sacroiliac joint: right side / left side Range of motion: Flexion of the lumbar spine <60 degrees Range of motion: Extension of the lumbar spine <20 degrees Gaenslen's Test positive Star's Test positive Afshin test: positive right side / left side Thigh Thrust Test Sacral Thrust Test Assessment and plan: Chronic low back pain secondary to lumbar degenerative disc disease , lumbar spondylosis with facet arthropathy without myelopathy Recommendation of BL MBB L4-L5, L5-S1 #2. May need a series of injections, up until RFA, for optimal pain relief. Risks, benefits of procedure discussed and pt verbalized understanding. Admits to anticoagulant use or medical history of diabetes. Protocol for discontinuation/ continuation of medications carlos procedure discussed. All patient questions answered MAPS reviewed and it was appropriate. I have spent less than 30 minutes on patient care today. Dr Montenegro was available by phone for the evaluation of this patient. The time was used to review the medical records including relevant urine studies and Prescription h istory (MAPs), review of the available imaging, evaluation and examination of the patient, coordination of care with the medical staff and if applicable referring physicians, as well as creation of the medical record PQRS Narrative: Smoking Status Never smoker Hx Alcohol Use (MH) No Home Medications: Ambulatory Orders Levothyroxine Sodium [Synthroid] 25 mcg PO DAILY 08/25/15 Venlafaxine HCl ER [Effexor Xr] 75 mg PO DAILY 08/25/15 Aspirin [Adult Low Dose Aspirin EC] 81 mg PO DAILY 08/20/21 Ibuprofen 800 mg PO DIRECTED PRN 08/20/21 amLODIPine BESYLATE [Norvasc] 2.5 mg PO DAILY 08/20/21 Controlled Substance Measures - Controlled Substance Measures Is patient prescribed a controlled substance at discharge?: No
== END ==
LOC: PNWHC3 14:10
PROVIDERS: ATTEND Specialist
DX: M47.816 Spondylosis without myelopathy or radiculopathy, lumbar region (principal); M51.36 Other intervertebral disc degeneration, lumbar region; G89.29 Other chronic pain; Z88.1 Allergy status to other antibiotic agents; Z88.2 Allergy status to sulfonamides; Z88.5 Allergy status to narcotic agent
CPT/HCPCS: 99211

== ENCOUNTER → 2022-02-09 | Outpatient (CLI) | payer BC, MEDICARE ==
--- NOTE | 2022-02-09 11:46 | US ---
EXAMINATION TYPE: US carotid duplex BILAT DATE OF EXAM: 02/09/2022 COMPARISON: NONE CLINICAL HISTORY: I65.23 OCCLUSION AND STENOSIS. HTN controlled with meds. Patient states having juliocesar e chest pain. TECHNIQUE: Carotid duplex ultrasound examination. Indirect Doppler criteria was utilized. FINDINGS: EXAM MEASUREMENTS: RIGHT: Peak Systolic Velocity (PSV) cm/sec ----- Right CCA: 127.0 ----- Right ICA: 91.7 ----- Right ECA: 100.0 ICA/CCA ratio: 0.7 RIGHT: End Diastole cm/sec ----- Right CCA: 35.3 ----- Right ICA: 32.7 ----- Right ECA: 13.0 LEFT: Peak Systolic Velocity (PSV) cm/sec ----- Left CCA: 119.0 ----- Left ICA: 93.5 ----- Left ECA: 114.0 ICA/CCA ratio: 0.8 LEFT: End Diastole cm/sec ----- Left CCA: 25.3 ----- Left ICA: 35.2 ----- Left ECA: 18.4 VERTEBRALS (direction of flow): Right Vertebral: Antegrade Left Vertebral: Antegrade Rhythm: Normal [employer] NOTES: No elevated velocities or plaque seen. No significant stenosis. IMPRESSION: No evidence for hemodynamically significant stenosis. Criteria for Assigning % of Stenosis / Diameter reduction (Estimation based on the indirect measurements of the internal carotid artery velocities (ICA PSV). 1. Normal (no stenosis)=ICA PSV < 125 cm/s: ratio < 2.0: ICA EDV<40 cm/s. 2. Less than 50% stenosis=ICA PSV < 125 cm/s: ratio < 2.0: ICA EDV<40 cm/s. 3. 50 to 69% stenosis=ICA PSV of 125 to 230 cm/s: ration 2.0 ? 4.0: ICA EDV 40-100 cm/s. 4. Greater than 70% stenosis to near occlusion= ICA PSV > 230 cm/s: ratio > 4.0: ICA EDV > 100 cm/s. 5. Near occlusion= ICA PSV velocities may be low or undetectable: variable ratio and ICA EDV. 6. Total occlusion=unable to detect flow.
== END | disposition home or self-care (01) ==
LOC: RADUSWWP 10:55
PROVIDERS: ATTEND Internal Medicine
DX: I65.23 Occlusion and stenosis of bilateral carotid arteries (principal)
CPT/HCPCS: 93880

== ENCOUNTER 2022-02-18 10:22 | Day surgery (SDC) | payer BC, MEDICARE ==
[2022-02-16 15:30] VITALS: BMI 32.2
[2022-02-18 10:41] VITALS: RESP 16; TEMP 98.3
[2022-02-18] MEDS ORDERED: LIDOCAINE 1% (10MG/ML) FOR IV START INTRADERMA ONE (10:54)
[2022-02-18] MEDS ORDERED: LACTATED RINGERS 1,000 ML IV ONE (10:54)
[2022-02-18] MEDS ORDERED: ROPIVACAINE 5 MG/ML 20 ML AMPULE ONE (11:10)
[2022-02-18] MEDS ORDERED: methylPREDNISolone ACETATE 40 MG/ML 1 ML VIAL ONE (11:10)
[2022-02-18] MEDS ORDERED: MIDAZOLAM 2 MG/2 ML VIAL ONE (11:10)
[2022-02-18] MEDS ORDERED: fentaNYL (PF) 50 MCG/ML 2 ML AMP ONE (11:10)
--- NOTE | 2022-02-18 11:28 | P.PCN ---
Date of Procedure: 02/18/22 Procedure(s) Performed: PREOPERATIVE DIAGNOSIS : 1- Lumbar spondylosis with Facet Arthropathy without myelopathy . 2- Lumber degenerative disc disease POSTOPERATIVE DIAGNOSIS: 1- Lumbar spondylosis with Facet Arthropathy without myelopathy . 2- Lumber degenerative disc disease PROCEDURE: Diagnostic bilateral L3 , L4 , and L5 medial branch block under fluoroscopy guidance(fluoroscopy images available in the radiology Department ) ( To target the facet joint between Bilateral L4-5 , and L5-S1 )# 2 nd ANESTHESIA:, Moderate sedation with Versed 2 mg and fentanyl 100 g Sedation start time 1112. Sedation stop time 1125 EBL: Minimal COMPLICATION: None PROCEDURE INDICATION: Chronic low back pain secondary to Facet arthropathy unresponsive to conservative treatment. PROCEDURE DESCRIPTION: the patient was seen and identified in the preop holding area , risks and benefits and possible complications of the procedure and alternative were discussed with the patient, and the patient agreed to proceed with the procedure and signed the consent and vital signs monitored during the procedure and fluoroscopy was used to maximize the benefit and accuracy of the needle placement, and sedation was given to decrease patient anxiety, patient was taken to the procedure room and placed in prone position vital signs monitored in the back prepped with chlorhexidine X3 then under strict sterile technique using a right oblique fluoroscopy ,the junction of the transverse process and the superior articulating process of the right L3 , L4 , and L5 vertebra which corresponding to the fluoroscopy image of the eye of the Abhishek dog on the block side for the medial branches and subsequently , after local infiltration of skin and subcu tissuies with Ropivacaine 0.5 % , one mL at each level ,then 22-gauge Quincke-type needles , 3 needle was used , each one of them placed at the junction of the base of the transverse process and the superior articular process at the appropriate level, and the needle was advanced until the periosteum contacted, needle placement confirmed with AP oblique and lateral view and after appropriate needle placement confirmed, and after negative aspiration for heme and CSF and there was no paresthesia 1-1/2 mL of Ropivacaine 0.5% mixed with 20 mg Depo-Medrol , then half mL injected at each level after negative aspiration the needle subsequently removed and the same procedure repeated for the left side at left side at L3 , L4 and L5 levels. At the end of the procedure and the needles removed and a bandage applied after the skin was cleaned the cleaning solution patient taken to recovery room in stable condition and monitors in the recovery room for 20-30 minutes and discharged home in stable condition after discharge criteria met and patient will follow up with the pain clinic in 2-4 weeks
[2022-02-18] MEDS ORDERED: IV FLUID CONTINUATION 750 ML IV ONE (11:30)
--- NOTE | 2022-02-18 11:40 | FL ---
EXAMINATION TYPE: FL guided pain mgmt statistic DATE OF EXAM: 02/18/2022 HISTORY: Fluoroscopy time 8 seconds of fluoroscopy provided. IMPRESSION: 1. Fluoroscopy time.
[2022-02-18 12:13] VITALS: BP 107/58; PULSE 80
== END 2022-02-18 12:17 | disposition home or self-care (01) ==
LOC: ORPAIN 10:22
PROVIDERS: ATTEND Specialist
DX: M51.36 Other intervertebral disc degeneration, lumbar region (principal); M47.816 Spondylosis without myelopathy or radiculopathy, lumbar region; G89.29 Other chronic pain; Z88.1 Allergy status to other antibiotic agents
CPT/HCPCS: 64493; 64494 ×2; 99152; J2250; J1030; J3010; J2795

== ENCOUNTER → 2022-03-10 | Outpatient (CLI) | payer BC, MEDICARE ==
[2022-03-10 14:20] VITALS: BP 107/61; PULSE 95; RESP 18; TEMP 98.6
--- NOTE | 2022-03-10 14:22 | P.PAINPG ---
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 Pt states she experienced 100 % pain relief x 14 days s/p procedure. Pain level is currently at 1/10 in intensity, constant, localized in the lower lumbar spine, stabbing/ sharp in character w shooting towards the LLE. Pain is provoked as high as 10/10 by standing/ walking for periods of 10 min or more. Pain is alleviated with ice, meds (Ibu), +THC gummies, sitting, repositioning and rest. Interventional pain procedures completed include BL MBB L3-L5 x2 Patient is currently on Ibu Patient denies any side effects of the medication(s), denies excessive drowsiness or sleepiness, denies suicidal ideation and reports that the current pain medication is helping to control the pain and improve activities of daily living. Patient denies any motor or sensory deficits. Patient denies any fever or night sweats, denies any change in the bowel movements or urination. Physical Examination: -Constitutional: Cooperative. Not in acute distress . - Neurologic: Cranial nerve II to XII intact. No focal neurological deficits. - Psychatric: Alert & oriented x 3. Matching mood & appropriate affect. Judgment and insight intact. - Musculoskeletal: Cervical spine: Muscle bulk/ tone/ strength in the bilateral upper extremities normal Vertebral body tenderness to palpation over Spurling test positive Distraction test positive Facet loading test positive Thoracic spine Muscle bulk / tone/ strength in the bilateral paraspinal muscles normal Vertebral body tender to palpation over Facet loading test positive Lumbar spine: Motor bulk/ tone/ strength lower extremities , thigh and legs : 5/5 Deep tendon reflexes : Normal Knee Jerk. Normal Ankle Jerk . Vertebral body tenderness to palpation over Lumbar Facet Loading Test positive w lateral flexion w TTP over BL L4-L5, L5-S1 facets Straight Leg Raise: positive at 30 degrees right side/ left side Gaenslen's Test positive Sacral spine : Severe tenderness over the Sacroiliac joint: right side / left side Range of motion: Flexion of the lumbar spine <60 degrees Range of motion: Extension of the lumbar spine <20 degrees Gaenslen's Test positive Star's Test positive Afshin test: positive right side / left side Thigh Thrust Test Sacral Thrust Test Assessment and plan: Chronic low back pain secondary to lumbar degenerative disc disease , lumbar spondylosis with facet arthropathy without myelopathy Recommendation of BL RFA L4-L5, L5-S1. Patient experienced sufficient and optimal pain relief with the prior MBB procedures. Risks, benefits of procedure discussed and pt verbalized understanding. Admits to anticoagulant use or medical history of diabetes. Protocol for discontinuation/continuation of medications carlos procedure discussed. All patient questions answered I have spent less than 30 minutes on patient care today. Dr Montenegro was available by phone for the evaluation of this patient. The time was used to review the medical records including relevant urine studies and Prescription history (MAPs), review of the available imaging, evaluation and examination of the patient, coordination of care with the medical staff and if applicable referring physicians, as well as creation of the medical record - Pain Location Bilateral Lower Back Non-Pharmacological Interventions: Ice, Inactivity, Sitting Pharmacological Interventions: Block, Epidural, PRN Medication PQRS Narrative: Smoking Status Never smoker Hx Alcohol Use (MH) No Home Medications: Ambulatory Orders Levothyroxine Sodium [Synthroid] 25 mcg PO DAILY 08/25/15 Venlafaxine HCl ER [Effexor Xr] 75 mg PO DAILY 08/25/15 Aspirin [Adult Low Dose Aspirin EC] 81 mg PO DAILY 08/20/21 Ibuprofen 800 mg PO DIRECTED PRN 08/20/21 amLODIPine BESYLATE [Norvasc] 2.5 mg PO DAILY 08/20/21 Controlled Substance Measures - Controlled Substance Measures Is patient prescribed a controlled substance at discharge?: No
== END ==
LOC: PNWHC3 13:49
PROVIDERS: ATTEND Specialist
DX: M47.816 Spondylosis without myelopathy or radiculopathy, lumbar region (principal); M51.36 Other intervertebral disc degeneration, lumbar region; G89.29 Other chronic pain; Z79.01 Long term (current) use of anticoagulants; E11.9 Type 2 diabetes mellitus without complications; Z79.4 Long term (current) use of insulin; Z88.5 Allergy status to narcotic agent; Z88.2 Allergy status to sulfonamides; Z88.1 Allergy status to other antibiotic agents
CPT/HCPCS: 99211

== ENCOUNTER 2022-03-26 10:46 | Day surgery (SDC) | payer BC, MEDICARE ==
[2022-03-23 12:02] VITALS: BMI 32.2
[2022-03-26 10:58] VITALS: TEMP 97.5
[2022-03-26] MEDS ORDERED: LACTATED RINGERS 1,000 ML IV ONE (11:07)
[2022-03-26] MEDS ORDERED: methylPREDNISolone ACETATE 40 MG/ML 1 ML VIAL ONE (12:13)
[2022-03-26] MEDS ORDERED: ROPIVACAINE 5 MG/ML 20 ML AMPULE ONE (12:13)
[2022-03-26] MEDS ORDERED: MIDAZOLAM 2 MG/2 ML VIAL ONE (12:16)
[2022-03-26] MEDS ORDERED: fentaNYL (PF) 50 MCG/ML 2 ML AMP ONE (12:16)
--- NOTE | 2022-03-26 12:46 | P.PCN ---
Date of Procedure: 03/26/22 Procedure(s) Performed: PREOPERATIVE DIAGNOSIS: 1-Lumbar Spondylosis with Facet Arthropathy without myelopathy. 2- Lumber degenerative disc disease. POSTOPERATIVE DIAGNOSIS: 1- Lumbar Spondylosis with Facet Arthropathy without myelopathy. 2- Lumber degenerative disc disease. PROCEDURES : Bilateral Radiofrequency thermocoagulation, L3 , L4 , and L5 medial branch, with fluoroscopic guidance (fluoroscopy images available in the radiology department) ( to denervate the facet joint at bilateral L4-5 ,and L5-S1 levels ). ANESTHESIA: Monitored anesthesia care as per anesthesia department . EBL: Minimal PROCEDURE INDICATION: The patient with low back pain secondary to lumbar facet arthropathy who had more than 50% relief of her pain with previous diagnostic lumbar medial branch block with bupivacaine. PROCEDURE DESCRIPTION / TECHNIQUE: The patient was seen and identified in the preoperative area. Risks, benefits, complications, including but not limited to risk of infection ,bleeding , allergic reactions to the medications and no complete pain releife , and alternatives were discussed with the patient, the patient agreed to proceed with the procedure and signed the consent. IV was started. Vital signs remained stable throughout the procedure. Patient was taken to the OR and time out was completed. The patient was placed in the prone position on the procedure table. The lumber area was prepped and draped in the usual sterile fashion. . Vital signs were closely monitored during the procedure .IV sedation was used during the procedure to decrease patients anxiety. Using AP and then oblique fluoroscopy, the ``eye of the Abhishek dog cor responding to the connection between the superior and transverse articular processes of right L3, L4, and L5 were identified, marked, and localized with 1% lidocaine. Subsequently, a 18 -no radiofrequency cannula with a 10- mm active tip was advanced guided by fluoroscopy to each of the``eyes of the Abhishek dog at right L3, L4, and L5. Each site then underwent sensory testing at 50 Hz and 0 to 1 volt and motor testing at 2.5 Hz and 0 to 3 volt with local stimulation, but no radicular symptoms down the legs. Thereafter each sites underwent radiofrequency thermocoagulation at 80 degrees celsius for 90 seconds after injecting 0.5 ml of PF Ropivacaine 1ml, then after the thermocoagulation done , 1 ml of the block solution containing Depo-Medrol 20 mg and 3 ml of Ropivacaine 0.5% was injected at the right L3 , L4 , and L5 , levels after negative aspiration of CSF and blood and with no paresthesias. Cannulas were retracted while injecting lidocaine 1% until the needle is out. The same procedure was repeated at the level of Left L3, L4, and L5 levels. At the end of the procedure, the skin was cleansed and bandages were applied. COMPLICATIONS: No acute complications. DISPOSITION / PLANS: The patient was placed in a supine position and transferred to the recovery area in a stable condition for observation and was discharged from the recovery room after meeting discharge criteria. Home discharge instructions given to the patient by the staff. The patient was reexamined prior to discharge. The patient will schedule a follow up in the clinic in 2-4 weeks.
[2022-03-26] MEDS ORDERED: IV FLUID CONTINUATION 1,000 ML IV ONE (12:50)
--- NOTE | 2022-03-26 13:04 | FL ---
EXAMINATION TYPE: FL guided pain mgmt statistic DATE OF EXAM: 03/26/2022 HISTORY: Fluoroscopy time 33seconds of fluoroscopy provided. IMPRESSION: 1. Fluoroscopy time.
[2022-03-26 13:08] VITALS: RESP 16
[2022-03-26 13:23] VITALS: BP 119/61; PULSE 78
== END 2022-03-26 13:35 | disposition home or self-care (01) ==
LOC: ORPAIN 10:46
PROVIDERS: ATTEND Specialist
DX: M47.816 Spondylosis without myelopathy or radiculopathy, lumbar region (principal); M51.36 Other intervertebral disc degeneration, lumbar region
CPT/HCPCS: 64635; 64636 ×2; J2250; J1030; J3010; J2795

== ENCOUNTER → 2022-04-19 | Outpatient (CLI) | payer BC, MEDICARE ==
[2022-04-19 14:42] VITALS: BP 148/87; PULSE 91; RESP 18; TEMP 98.2
--- NOTE | 2022-04-19 15:38 | P.PAINPG ---
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 Pt states she experienced 0% pain relief s/p procedure. Pain level is at 9/10 in intensity, constant, localized in the lower lumbar spine, dull/ achy in character w shooting towards the BLEs. Pain is provoked by lifting. Pain is alleviated with PT without relief, daily exercises, chiropractic treatments prior to lumbar surgery, ice, meds (Ibu), topicals, THC edibles, repositioning and rest. Interventional pain procedures completed include BL RFA L3-L5, LESIs, TFESIs Patient is currently on Ibuprofen Patient denies any side effects of the medication(s), denies excessive drowsiness or sleepiness, denies suicidal ideation and reports that the current pain medication is helping to control the pain and improve activities of daily living. Patient denies any motor or sensory deficits. Patient denies any fever or night sweats, denies any change in the bowel movements or urination. Physical Examination: -Constitutional: Cooperative. Not in acute distress . - Neurologic: Cranial nerve II to XII intact. No focal neurological deficits. - Psychatric: Alert & oriented x 3. Matching mood & appropriate affect. Judgment and insight intact. - Musculoskeletal: Cervical spine: Muscle bulk/ tone/ strength in the bilateral upper extremities normal Vertebral body tenderness to palpation over Spurling test positive Distraction test positive Facet loading test positive Thoracic spine Muscle bulk / tone/ strength in the bilateral paraspinal muscles normal Vertebral body tender to palpation over Facet loading test positive Lumbar spine: Motor bulk/ tone/ strength lower extremities , thigh and legs : 5/5 Deep tendon reflexes : Normal Knee Jerk. Normal Ankle Jerk . Vertebral body tenderness to palpation over Lumbar Facet Loading Test positive Straight Leg Raise: positive at 30 degrees right side/ left side Gaenslen's Test positive Sacral spine : Severe tenderness over the Sacroiliac joint: right side / left side Range of motion: Flexion of the lumbar spine <60 degrees Range of motion: Extension of the lumbar spine <20 degrees Gaenslen's Test positive Afshin test: positive right side / left side Thigh Thrust Test Sacral Thrust Test Assessment and plan: Chronic neck & LBP pain secondary to DDD, spondylosis with facet arthropathy without myelopathy Pt interested in working on cervical and lumbar spine. Video for Nalu device will be viewed by the patient. Behavioral health screen script for IPG placement provided. Will have plan of care when patient returns within 4 wks for a re evaluation. Risks, benefits of procedure discussed and pt verbalized understanding. Denies anticoagulant use or medical history of diabetes. All patient questions answered I have spent less than 30 minutes on patient care today. Dr Montenegro was available by phone for the evaluation of this patient. The time was used to review the medical records including relevant urine studies and Prescription history (MAPs), review of the available imaging, evaluation and examination of the patient, coordination of care with the medical staff and if applicable referring physicians, as well as creation of the medical record - Pain Location Lower Back Non-Pharmacological Interventions: Chiropractic Treatment, Home Exercise, Ice, Inactivity, Physical Therapy, Position/Reposition, Stretching Pharmacological Interventions: Block, Epidural, PRN Medication, Topical Medication PQRS Narrative: Smoking Status Never smoker Hx Alcohol Use (MH) No Home Medications: Ambulatory Orders Levothyroxine Sodium [Synthroid] 25 mcg PO DAILY 08/25/15 Venlafaxine HCl ER [Effexor Xr] 75 mg PO DAILY 08/25/15 Aspirin [Adult Low Dose Aspirin EC] 81 mg PO DAILY 08/20/21 Ibuprofen 800 mg PO DIRECTED PRN 08/20/21 amLODIPine BESYLATE [Norvasc] 2.5 mg PO DAILY 08/20/21 Controlled Substance Measures - Controlled Substance Measures Is patient prescribed a controlled substance at discharge?: No
== END ==
LOC: PNWHC3 13:51
PROVIDERS: ATTEND Specialist
DX: M47.9 Spondylosis, unspecified (principal); M51.9 Unspecified thoracic, thoracolumbar and lumbosacral intervertebral disc disorder; M54.50 Low back pain, unspecified; M54.2 Cervicalgia; Z88.1 Allergy status to other antibiotic agents; Z88.2 Allergy status to sulfonamides; Z88.5 Allergy status to narcotic agent
CPT/HCPCS: 99211

== ENCOUNTER → 2022-05-12 | Outpatient (CLI) | payer BC, MEDICARE ==
[2022-05-12 12:25] VITALS: BP 126/61; PULSE 95; RESP 18
--- NOTE | 2022-05-12 15:17 | P.PN ---
Subjective Progress Note Date: 05/12/22 This is a follow-up visit for this patient with a history of severe chronic low back pain and neck pain is diagnosed with lumbar radiculopath lumbar foraminal stenosis ,failed back surgery syndrome and lumbar area.-bilateral sacroilis ,cervical degenerative disc disease, rigorously we have done an interventional pain management procedure transforaminal epidural steroid injection and we did RFA of the medial branch lumbar area she continued to have severe low back pain, the pain is constant and increases with any activity interference with the quality of life, patient tried physical therapy in the past without any significant benefit she tried also home exercise without any benefit she tried pain medication Motrin 800 mg when necessary and she used interventional pain procedure without any benefit, she was referred last visit for psych evaluation regarding spinal cord stimulator, and the evaluation was positive there is no contraindication to proceed with the spinal cord stimulator, currently most of her pain in the lumbar area but she had some neck pain issue and she is diagnosed with cervical degenerative disc disease and cervical stenosis Objective - Vital Signs Vital signs: Vital Signs Temp Pulse 95 05/12/22 12:20 Resp 18 05/12/22 12:20 BP 126/61 05/12/22 12:20 Pulse Ox 95 05/12/22 12:20 FiO2 Intake & Output 05/11/22 05/12/22 05/12/22 18:59 06:59 18:59 Weight 74.843 kg - Exam Physical Examinations : -Constitutiona : Cooperative , not in acute distress . -HEENT : nech : supple , no Lymphadenopathy , normal thyroid size . : eyes : no ptosis , no icterus, no photophobia . - neurologic : Cranial nerve II to XII intact , no focal neurological deffecit . -psychatric : alert , oriented X 3 , appropriate affect , intact judgment and insight . -Lymphatic : no Lymphadenopathy . - musculoskeltal : Cervical Spine motor stregnth in the deltoid and biceps, normal right side , normal Left side motor stregnth biceps and the wrist extensors normal right side ,normal left side . motor stregnth in the triceps muscle . normal Right side , normal Left side deep tendon reflexes normal at the biceps , normal at Brachioradialis , normal at triceps. cervical facet loading test: Positive Bilaterally Spurling test= positive Right , positive left. Neck distraction test= positive Right , positive left. Radha sign= positive right, positive left . Lumber spine moter stegnth lower extremities ,thigh and legs 5/5 Right side , 5/5 Left side deep tendon reflexes : normal Knee Jerk , normal ankle Jerk lumber facet Loading Test =positive Right , positive Left Range of motion of the lumbar spine Flexion 30 degrees, extension 10 degrees strait leg raising test = positive at 30 degree Fabere test= positive Right , and positive LT . Sever tenderness over the Sacroiliac joint on the Right , and Left sides Gaenslen test= positive right ,and positive left . Seated flexion test= positive right ,and positive Left . Distraction test= positive bilaterally Assessment and Plan Plan: Assessment and plan=1-lumbar radiculopathy. 2- Failed Back surgery syndrome lumbar area. 3-lumbar spinal stenosis. 4-sacroiliitis. 5-cervical degenerative disc disease. She'll failed interventional pain management and failed physical therapy she will be a good candidate to have spinal cord stimulator trial and if she has a good result to proceed with the permanent implant, she already had psych evaluation and that showed no contraindication for spinal cord stimulator Time with Patient: Less than 30
== END ==
LOC: PNWHC3 12:01
PROVIDERS: ATTEND Specialist
DX: M46.1 Sacroiliitis, not elsewhere classified (principal); M54.16 Radiculopathy, lumbar region; M96.1 Postlaminectomy syndrome, not elsewhere classified; M48.061 Spinal stenosis, lumbar region without neurogenic claudication; M50.30 Other cervical disc degeneration, unspecified cervical region; Z88.5 Allergy status to narcotic agent; Z88.2 Allergy status to sulfonamides; Z88.1 Allergy status to other antibiotic agents
CPT/HCPCS: 99211

== ENCOUNTER 2022-06-10 10:39 | Day surgery (SDC) | payer BC, MEDICARE ==
[2022-06-09 11:09] VITALS: BMI 32.2
[~2022-06-10 10:39] MED LIST changes: +Pre Op ABX Message 1 EACH MISC MISCELLANE ONE
[2022-06-10 11:10] VITALS: TEMP 98.1
[2022-06-10] MEDS ORDERED: ONDANSETRON 4 MG/2 ML VIAL ONE (11:31)
[2022-06-10] MEDS ORDERED: ONDANSETRON 4 MG/2 ML VIAL IVP ONE (11:33)
[2022-06-10] MEDS ORDERED: PROPOFOL 10 MG/ML 20 ML VIAL IV ONE (12:13)
[2022-06-10] MEDS ORDERED: fentaNYL (PF) 50 MCG/ML 2 ML AMP ONE (12:13)
[2022-06-10] MEDS ORDERED: MIDAZOLAM 2 MG/2 ML VIAL ONE (12:13)
[2022-06-10] MEDS ORDERED: LIDOCAINE 1% INJ 10MG/ML (10 ML MDV) SQ ONE ×2 (12:28)
--- NOTE | 2022-06-10 13:27 | FL ---
EXAMINATION TYPE: FL guidance operating room DATE OF EXAM: 06/10/2022 CLINICAL HISTORY: Low back pain. TECHNIQUE: Fluoroscopy. COMPARISON: None. FINDINGS: Fluoroscopic guidance was provided during pain stimulator trial in insertion procedure per formed by Dr. Montenegro . A total of 2.22 minutes of fluoroscopic time was utilized during the proced ure and 0 spot images are acquired. IMPRESSION: As Above.
[2022-06-10 13:45] VITALS: BP 115/67; PULSE 76; RESP 18
--- NOTE | 2022-06-10 14:01 | P.PCN ---
Date of Procedure: 06/10/22 Procedure(s) Performed: PROCEDURES: 1-spinal cord stimulator trial leads under fluoroscopic guidance X2 leads . (Fluoroscopy images stored on file in radiology department ) PREOPERATIVE DIAGNOSIS: 1-failed back surgery syndrome lumbar area. 2-lumbar radiculopathy. 3-lumbar spinal stenosis POSTOPERATIVE DIAGNOSIS: Same as preop diagnosis. ANESTHESIA: monitered anesthesia care as per anesthesia department BLOOD LOSS: Minimal. COMPLICATIONS: None. PROCEDURE INDICATIONS: The patient with a history of severe intractable , chronic low back pain with radiation to the lower extremities bilateraly who failed more conservative treatment measures. And she failed all interventional pain management, we discussed with the patient in the clinic the option of doing spinal cord stimulator and she was very interested risk and benefits of the procedure was discussed with the patient and she agreed with proceeding, and patient was evaluated by psychologist, and there was no contraindication to proceed with a spinal cord stimulator. PROCEDURE DESCRIPTION: The patient was seen and identified in the preoperative area. Risks, benefits, complications, and alternatives were discussed with the patient. The patient agreed to proceed with the procedure and signed the consent. IV was started.Patient was taken to the operating room and time out was performed. The Thoracic and lumbar areas were prepped with Druaprep x2 and draped in the usual sterile fashion. Using sterile gowns and gloves, and after covering the fluoroscopic camera with a sterile drape, the procedure was proceeded on with. The fluoroscopic camera was placed in the AP position, and the L1-2 interlaminar space was identified and localized in the left paramedian trajectory with 1% lidocaine. Under fluoroscopic guidance, a 14 gauge Tuohy epidural needle from the ( Nalu ) spinal cord stimulator kit was guided into the interlaminar space. Then using the right oblique fluoroscopy, anterior-posterior fluoroscopy, and [id number] technique, the epidural space was accessed. The first lead (8 contacts leads from Nalu ) was passed and noted to be in the dorsal portion of the epidural space in the lateral view. Then using anterior-posterior view, the first lead was passed up to the top of T9 vertebra. Subsequently, a second 14 gauge Tuohy epidural needle was inserted just posterior to the first needle and was advanced toward the epidural space in a parallel direction to the first needle. Then using lateral fluoroscopy, anterior-posterior fluoroscopy, and [id number] technique, the epidural space was accessed by the second needle into the same interlaminar space as the first needle. Then a second similar lead was passed and noted to be in the dorsal portion of the epidural space in the lateral view. Then using anterior- posterior view, the second lead was passed up to the top of [id number], and was right in a parallel position to the first lead. Subsequently, the leads were tested and they gave good stimulation on the low back area and the lower ex tremity bilaterally. Then after that Balsley secured using 2 sutures and then dressings applied with Tegaderm We did complex programming to of the stimulation in the recovery room and patient gets excellent pain relief and she will follow up in the pain clinic in 5 days,
== END 2022-06-10 14:45 | disposition home or self-care (01) ==
LOC: OR 10:39
PROVIDERS: ATTEND Specialist
DX: M54.16 Radiculopathy, lumbar region (principal); M48.061 Spinal stenosis, lumbar region without neurogenic claudication; G89.29 Other chronic pain; I10 Essential (primary) hypertension; E03.9 Hypothyroidism, unspecified; K21.9 Gastro-esophageal reflux disease without esophagitis; Z79.890 Hormone replacement therapy; Z79.82 Long term (current) use of aspirin; Z79.899 Other long term (current) drug therapy; Z79.02 Long term (current) use of antithrombotics/antiplatelets; Z88.5 Allergy status to narcotic agent; Z88.8 Allergy status to other drugs, medicaments and biological substances; Z98.890 Other specified postprocedural states
CPT/HCPCS: 63650; J2250; J2405; J3010; J2001; J2704; C1883; C1778

== ENCOUNTER → 2022-08-31 | Outpatient (CLI) | payer BC, MEDICARE ==
--- NOTE | 2022-09-01 08:13 | XR ---
EXAMINATION TYPE: XR foot complete RT DATE OF EXAM: 08/31/2022 COMPARISON: None HISTORY: Heel pain x3 months TECHNIQUE: 3 view right foot FINDINGS: No acute fracture or dislocation is evident. Joint spaces appear preserved. Plantar and Ach illes tendon calcaneal heel spurs are present. IMPRESSION: 1. No acute osseous abnormality. 2. Calcaneal heel spurs
== END | disposition home or self-care (01) ==
LOC: RADXRMAIN 11:46
PROVIDERS: ATTEND Internal Medicine
DX: M77.31 Calcaneal spur, right foot (principal); M77.32 Calcaneal spur, left foot; M72.2 Plantar fascial fibromatosis

== ENCOUNTER 2022-09-03 12:44 | Day surgery (SDC) | payer BC, MEDICARE ==
[2022-08-31 14:53] VITALS: BMI 33.0
[2022-09-03 13:14] VITALS: TEMP 98.7
[2022-09-03] MEDS ORDERED: ONDANSETRON 4 MG/2 ML VIAL ONE (13:24)
[2022-09-03] MEDS ORDERED: DEXAMETHASONE SOD PHOSPHATE 4 MG/ML 1 ML VIAL IVP ONE (13:31)
[2022-09-03] MEDS ORDERED: FAMOTIDINE 20 MG/2 ML VIAL IVP ONE (13:32)
[2022-09-03] MEDS ORDERED: KETAMINE 10 MG/ML 20 ML VIAL ONE (14:25)
[2022-09-03] MEDS ORDERED: fentaNYL (PF) 50 MCG/ML 2 ML AMP ONE (14:25)
[2022-09-03] MEDS ORDERED: MIDAZOLAM 2 MG/2 ML VIAL ONE (14:25)
--- NOTE | 2022-09-03 14:25 | P.GSHP ---
History of Present Illness H&P Date: 09/03/22 This is 71 years old female with a history of severe chronic low back pain she is very close with lumbar failed back surgery syndrome, lumbar radiculopathy lumbar spinal stenosis, patient had spinal cord stimulator trial done 3 months ago and she is here today to have permanent implant of spinal cord stimulator and the implantation of the IPG generator, procedure risk and benefits and alternatives discussed with the patient and she agreed with proceeding Past Medical History Past Medical History: Chest Pain / Angina, GERD/Reflux, Hypertension, Musculoskeletal Disorder, Pneumonia, Thyroid Disorder Additional Past Medical History / Comment(s): Hx Migraines, stomach ulcers., Chronic Back & Neck Pain with pinched nerves & numbness/tingling arms & legs., Kidney stones w/ rupture & surgery.,right neck mass surgery 08/21/21 states she aspirated and had pneumonia post-op. October 2021 covid infection with some lung damage. History of Any Multi-Drug Resistant Organisms: None Reported Past Surgical History: Back Surgery, Cholecystectomy, Heart Catheterization, Hysterectomy Additional Past Surgical History / Comment(s): HEMORRHOIDECTOMY, CYSTS REMOVED, LEFT KIDNEY SURGERY FOR STONES WITH RUPTURED KIDNEY & REPAIR (1997)., Heart Cath ([facility] 10/2020),. RIGHT NECK MASS (08/21/21).,spinal cord stimulator trial (06/10/22) Past Anesthesia/Blood Transfusion Reactions: Previous Problems w/ Anesthesia, Postoperative Nausea & Vomiting (PONV) Additional Past Anesthesia/Blood Transfusion Reaction / Comment(s): PT STATES MIGRAINE FOR 5 DAYS AFTER KIDNEY SURGERY. Hard IV start, prefers site to be numbed prior to starting. ASPIRATED WHEN INTUBATION TUBE WAS REMOVED AND HAD PNEUMONIA Past Psychological History: Anxiety, Depression Smoking Status: Never smoker Past Alcohol Use History: None Reported Additional Drug Use History / Comment(s): OCCASIONAL CBD GUMMIES - Past Family History Sister(s) Family Medical History: Cancer Additional Family Medical History / Comment(s): BREAST CANCER. Medications and Allergies Home Medications Medication Instructions Recorded Confirmed Type Levothyroxine Sodium [Synthroid] 25 mcg PO QAM 08/25/15 09/03/22 History Venlafaxine HCl ER [Effexor Xr] 75 mg PO DAILY 08/25/15 09/03/22 History Aspirin [Adult Low Dose Aspirin EC] 81 mg PO DAILY 08/20/21 09/03/22 History Ibuprofen 800 mg PO TID PRN 08/20/21 09/03/22 History amLODIPine BESYLATE [Norvasc] 2.5 mg PO QAM 08/20/21 09/03/22 History LORazepam [Ativan] 0.5 mg PO HS PRN 08/31/22 09/03/22 History Allergies Allergy/AdvReac Type Severity Reaction Status Date / Time nitrofurantoin Allergy Unknown Hives Verified 09/03/22 12:56 [From Macrobid] nitrofurantoin Allergy Unknown Hives Verified 09/03/22 12:56 macrocrystalline [From Macrobid] Sulfa (Sulfonamide Allergy Unknown Hives Verified 09/03/22 12:56 Antibiotics) codeine AdvReac Unknown Nausea & Verified 09/03/22 12:56 Vomiting Surgical - Exam Vital Signs Temp Pulse Resp BP Pulse Ox 98.7 F 89 18 139/67 97 09/03/22 13:11 09/03/22 13:11 09/03/22 13:11 09/03/22 13:11 09/03/22 13:11 Physical Examinations : -Constitutiona : Cooperative , not in acute distress . -HEENT : nech : supple , no Lymphadenopathy , normal thyroid size . : eyes : no ptosis , no icterus, no photophobia . - neurologic : Cranial nerve II to XII intact , no focal neurological deffecit . -psychatric : alert , oriented X 3 , appropriate affect , intact judgment and insight . -Lymphatic : no Lymphadenopathy . - musculoskeltal : Lumber spine moter stegnth lower extremities ,thigh and legs 5/5 Right side , 5/5 Left side deep tendon reflexes : normal Knee Jerk , normal ankle Jerk lumber facet Loading Test =positive Right , positive Left Range of motion of the lumbar spine Flexion 30 degrees, extension 10 degrees strait leg raising test = positive at 30 degree Fabere test= positive Right , and positive LT . Sever tenderness over the Sacroiliac joint on the Right , and Left sides Gaenslen test= positive right ,and positive left . Seated flexion test= positive right ,and positive Left . Distraction test= positive bilaterally Sacroiliac compression test= positive bilaterally Assessment and Plan Plan: Assessment and plan=1-failed back surgery syndrome lumbar area. 2-lumbar radiculopathy. 3-lumbar spinal stenosis. Patient had spinal cord stimulator trial done 3 months ago and she is here for permanent implant of spinal cord stimulator The generator and the leads implants Time with Patient: Less than 30
[2022-09-03] MEDS ORDERED: BUPIVACAIN-EPI 0.25%-1:200,000 30 ML VIAL SQ ONE ×2 (14:43)
[2022-09-03] MEDS ORDERED: SODIUM CHLORIDE 0.9% 100 ML with ceFAZolin 2,000 MG IV ONE ×2 (15:22)
[2022-09-03] MEDS ORDERED: SODIUM CHLORIDE 0.9% 1,000 ML IV ONE (16:14)
[2022-09-03 16:31] VITALS: RESP 16
--- NOTE | 2022-09-03 16:31 | P.PCN ---
Date of Procedure: 09/03/22 Procedure(s) Performed: PROCEDURES: 1-spinal cord stimulator permanent leads implant under fluoroscopic guidance X2 leads . (Fluoroscopy images stored on file in radiology department ) CPT code 29090 x2 2-implantation of spinal cord stimulator generator Cpt code 57444 PREOPERATIVE DIAGNOSIS: 1-failed back surgery syndrome lumbar area. 2-lumbar radiculopathy. 3-lumbar spinal stenosis POSTOPERATIVE DIAGNOSIS: Same as preop diagnosis. ANESTHESIA: monitered anesthesia care as per anesthesia department BLOOD LOSS: Minimal. COMPLICATIONS: None. PROCEDURE INDICATIONS: The patient with a history of severe intractable , chronic low back pain with radiation to the lower extremities bilateraly who failed more conservative treatment measures. And she failed all interventional pain management, we discussed with the patient in the clinic the option of doing spinal cord stimulator and she was very interested risk and benefits of the procedure was discussed with the patient and she agreed with proceeding, and patient was evaluated by psychologist, and there was no contraindication to proceed with a spinal cord stimulator, vision already had successful spinal cord stimulator trial done above months ago and she is here today to have permanent implant. PROCEDURE DESCRIPTION: The patient was seen and identified in the preoperative area. Risks, benefits, complications, and alternatives were discussed with the patient. The patient agreed to proceed with the procedure and signed the consent. IV was started.Patient was taken to the operating room and time out was performed. The Thoracic and lumbar areas were prepped with Druaprep x2 and draped in the usual sterile fashion. Using sterile gowns and gloves, and after covering the fluoroscopic camera with a sterile drape, the procedure was proceeded on with. The fluoroscopic camera was placed in the AP position, and the L1-2 interlaminar space was identified and localized in the left paramedian trajectory with 1% lidocaine. Under fluoroscopic guidance, a 14 gauge Tuohy epidural needle from the ( [employer] ) spinal cord stimulator kit was guided into the interlaminar space. Then using the right oblique fluoroscopy, anterior-posterior fluoroscopy, and rnkg-la-xprmbnrfly technique, the epidural space was accessed. The first lead (8 contacts leads from [employer] ) was passed and noted to be in the dorsal portion of the epidural space in the lateral view. Then using anterior-posterior view, the first lead was passed up to the top of T9 vertebra. Subsequently, a second 14 gauge Tuohy epidural needle was inserted just posterior to the first needle and was advanced toward the epidural space in a parallel direction to the first needle. Then using lateral fluoroscopy, anterior-posterior fluoroscopy, and eykl-sw-hnwanigdnd technique, the epidural space was accessed by the second needle into the same interlaminar space as the first needle. Then a second similar lead was passed and noted to be in the dorsal portion of the epidural space in the lateral view. Then using anterior- posterior view, the second lead was passed up to the top of [id number], and was right in a parallel position to the first lead. Subsequently, the leads were tested and they gave good stimulation on the low back area and the lower extremity bilaterally. Then incisions done in the spinal area upper lumbar and I did the dissection, repeat pockets for the lead, and then after that I created a pocket on the left side of the flank area to create the pocket for the generator, then the generator connected to the leads, and the generator, and under the skin and placed in the pocket, adequate hemostasis obtained, and then the incision closed using 20 Vicryl, 30 Vicryls, for the skin and used luis, she will use antibiotic Keflex 500 mg every 6 hours for 1 week and also she will use Ultram 50 mg nightly 8 hours when necessary for pain, patient will follow up in the pain clinic next week
[2022-09-03 17:00] VITALS: BP 109/71; PULSE 91
--- NOTE | 2022-09-03 19:27 | FL ---
Fluoroscopy History: PAIN PAIN STIMULATOR-3 MIN 58 SEC FL-DAP 4.3498 Gycm2
== END 2022-09-03 17:21 | disposition home or self-care (01) ==
LOC: OR 12:44
PROVIDERS: ATTEND Specialist
DX: M96.1 Postlaminectomy syndrome, not elsewhere classified (principal); M48.061 Spinal stenosis, lumbar region without neurogenic claudication; M54.16 Radiculopathy, lumbar region; G89.29 Other chronic pain; K21.9 Gastro-esophageal reflux disease without esophagitis; I10 Essential (primary) hypertension; I25.10 Atherosclerotic heart disease of native coronary artery without angina pectoris; E03.9 Hypothyroidism, unspecified; E07.9 Disorder of thyroid, unspecified; F41.9 Anxiety disorder, unspecified; F32.A Depression, unspecified; F12.90 Cannabis use, unspecified, uncomplicated; Z80.3 Family history of malignant neoplasm of breast; Z79.82 Long term (current) use of aspirin; Z86.16 Personal history of COVID-19; Z90.49 Acquired absence of other specified parts of digestive tract; Z90.710 Acquired absence of both cervix and uterus; Z98.890 Other specified postprocedural states; Z79.890 Hormone replacement therapy; Z88.1 Allergy status to other antibiotic agents; Z88.2 Allergy status to sulfonamides; Z88.5 Allergy status to narcotic agent; Z79.899 Other long term (current) drug therapy
CPT/HCPCS: 63685; 63650; J1100; J2405; J0690

== ENCOUNTER → 2022-09-10 | Outpatient (CLI) | payer BC, MEDICARE ==
[2022-09-10 10:54] VITALS: BP 132/94; PULSE 104; RESP 18; TEMP 97.6
== END ==
LOC: PNWHC3 10:06
PROVIDERS: ATTEND Specialist
DX: Z53.9 Procedure and treatment not carried out, unspecified reason (principal); M54.16 Radiculopathy, lumbar region; G89.4 Chronic pain syndrome

== ENCOUNTER 2022-11-23 12:14 | Emergency (ER) | payer BC, MEDICARE ==
[2022-11-23 12:19] VITALS: PULSE 74; RESP 16; TEMP 97.4
[2022-11-23] MEDS ORDERED: DIPH,PERTUS(ACELL)TETVAC-LF 0.5 ML VIAL IM ONE (13:19)
[2022-11-23] MEDS ORDERED: ONDANSETRON ODT 4 MG TAB PO STA (13:57)
--- NOTE | 2022-11-23 13:58 | ED ---
General Adult HPI - General Chief complaint: Head Injury Stated complaint: fall Time Seen by Provider: 11/23/22 12:27 Source: patient Mode of arrival: ambulatory Limitations: no limitations - History of Present Illness Initial comments: 72-year-old female presenting to the ED with a chief complaint of fall. Patient states approximately one and half hours prior to arrival lost her balance and fell forward landing on cement. States she was unable to catch herself during the fall due to holding groceries. Due to the fall states that she hit her head. Denies LOC. Patient is on aspirin, no other thinners. Denies nausea or vomiting. Per patient is acting appropriately. Denies feeling lightheadedness, dizziness, chest pain, or shortness of breath prior to the fall. No other complaints. - Related Data Home Medications Medication Instructions Recorded Confirmed Levothyroxine Sodium [Synthroid] 25 mcg PO QAM 08/25/15 09/03/22 Venlafaxine HCl ER [Effexor Xr] 75 mg PO DAILY 08/25/15 09/03/22 Aspirin [Adult Low Dose Aspirin EC] 81 mg PO DAILY 08/20/21 09/03/22 Ibuprofen 800 mg PO TID PRN 08/20/21 09/03/22 amLODIPine BESYLATE [Norvasc] 2.5 mg PO QAM 08/20/21 09/03/22 LORazepam [Ativan] 0.5 mg PO HS PRN 08/31/22 09/03/22 Previous Rx's Medication Instructions Recorded Cephalexin [Keflex] 500 mg PO Q6HR 1 Days #30 cap 09/03/22 traMADol HCl [Ultram] 50 mg PO Q6HR PRN 5 Days #20 tab 09/03/22 Allergies Allergy/AdvReac Type Severity Reaction Status Date / Time nitrofurantoin Allergy Unknown Hives Verified 11/23/22 12:15 [From Macrobid] nitrofurantoin Allergy Unknown Hives Verified 11/23/22 12:15 macrocrystalline [From Macrobid] Sulfa (Sulfonamide Allergy Unknown Hives Verified 11/23/22 12:15 Antibiotics) codeine AdvReac Unknown Nausea & Verified 11/23/22 12:15 Vomiting Review of Systems ROS Statement: Those systems with pertinent positive or pertinent negative responses have been documented in the HPI. ROS Other: All systems not noted in ROS Statement are negative. Past Medical History Past Medical History: Chest Pain / Angina, GERD/Reflux, Hypertension, Musc uloskeletal Disorder, Pneumonia, Thyroid Disorder Additional Past Medical History / Comment(s): Hx Migraines, stomach ulcers., Chronic Back & Neck Pain with pinched nerves & numbness/tingling arms & legs., Kidney stones w/ rupture & surgery.,right neck mass surgery 08/21/21 states she aspirated and had pneumonia post-op. October 2021 covid infection-SOME LUNG DAMAGE WAS FOUND AFTER COVID, History of Any Multi-Drug Resistant Organisms: None Reported Past Surgical History: Back Surgery, Cholecystectomy, Heart Catheterization, Hysterectomy Additional Past Surgical History / Comment(s): HEMORRHOIDECTOMY, CYSTS REMOVED, LEFT KIDNEY SURGERY FOR STONES WITH RUPTURED KIDNEY & REPAIR (1997)., Heart Cath ([facility] 10/2020),. RIGHT NECK MASS (08/21/21) back pain stimulator Past Anesthesia/Blood Transfusion Reactions: Previous Problems w/ Anesthesia Additional Past Anesthesia/Blood Transfusion Reaction / Comment(s): PT STATES MIGRAINE FOR 5 DAYS AFTER KIDNEY SURGERY. Hard IV start, prefers site to be numbed prior to starting. ASPIRATED WHEN INTUBATION TUBE WAS REMOVED AND HAD PNEUMONIA Past Psychological History: Anxiety, Depression Smoking Status: Never smoker Past Alcohol Use History: None Reported Past Drug Use History: None Reported - Past Family History Sister(s) Family Medical History: Cancer Additional Family Medical History / Comment(s): BREAST CANCER. General Exam Limitations: no limitations General appearance: alert, in no apparent distress Head exam: Present: normocephalic, other (Approximately 3 cm laceration lateral to the right eyebrow, linear. No foreign objects visualized. At this time wound has stopped bleeding.) Eye exam: Present: PERRL, EOMI ENT exam: Present: normal exam, mucous membranes moist Neck exam: Present: normal inspection, other (No Midline cervical spinal tenderness to palpation) Respiratory exam: Present: normal lung sounds bilaterally Cardiovascular Exam: Present: regular rate, normal rhythm GI/Abdominal exam: Present: soft (No tenderness to palpation. No rebound guarding or rigidity.) Extremities exam: Present: other (Strength and sensation equal and intact in bilateral upper and lower extremities. Radial pulses 2+, DP/PT pulses 2+. Small superficial laceration to the medial aspect of the right great toe. This toe shows full range of motion and no bony tenderness to palpation. ) Left Hand Wrist exam: Present: other (Left thumb showed minimal snuffbox tenderness to palpation. Able to fully oppose the thumb. Neurovascularly intact.) Back exam: Present: other (No midline lumbar or thoracic spinal tenderness to palpation) Neurological exam: Present: alert, oriented X3, CN II-XII intact Psychiatric exam: Present: normal affect, normal mood Skin exam: Present: warm, dry Course Vital Signs 11/23/22 12:15 Temperature 97.4 F L Pulse Rate 74 Respiratory 16 Rate Blood Pressure 93/63 O2 Sat by Pulse 98 Oximetry Procedures - Orthopedic Splinting/Casting Injury #1 Upper Extremity Injury Location: finger Upper Extremity Immobilizer: thumb spica Additional Comments: Vascularly intact after splint placement. Good sensation and capillary refill. Medical Decision Making - Medical Decision Making Was pt. sent in by a medical professional or institution (Dr. PA, DOOR HANGER, urgent care, hospital, or penitentiary...) When possible be specific @ -No Did you speak to anyone other than the patient for history (EMS, parent, family, police, friend...)? What history was obtained from this source @ -Spoke To patient's notes that the patient has been acting appropriately. Did you review nursing and triage notes (agree or disagree)? Why? @ -I reviewed and agree with nursing and triage notes Were old charts reviewed (outside hosp., previous admission, EMS record, old EKG, old radiological studies, urgent care reports/EKG's, penitentiary records)? Report findings @ -No old charts were reviewed Differential Diagnosis (chest pain, altered mental status, abdominal pain women, abdominal pain men, vaginal bleeding, weakness, fever, dyspnea, syncope, headache, dizziness, GI bleed, back pain, seizure, CVA, palpatations, mental health, musculoskeletal)? @ -Acute hemorrhage, acute fracture. Is not meant to be an all-inclusive list. EKG interpreted by me (3pts min.). @ -None X-rays interpreted by me (1pt min.). @ -Chest x-ray show no acute process. X-ray of the left hand showed no evid ence of scaphoid fracture. CT interpreted by me (1pt min.). @ -CT of the head showed no evidence of bleed. Did show nondisplaced right lateral orbital fracture. At this time no evidence of entrapment and no visual changes. U/S interpreted by me (1pt. min.). @ -None done What testing was considered but not performed or refused? (CT, X-rays, U/S, labs)? Why? @ -None What meds were considered but not given or refused? Why? @ -None Did you discuss the management of the patient with other professionals (professionals i.e. DrCynthia, PA, DOOR HANGER, lab, RT, psych nurse, social science professor, general superintendent, teacher, international first officer, home health care case manager)? Give summary @ -No Was smoking cessation discussed for >3mins.? @ -No Was critical care preformed (if so, how long)? @ -No Were there social determinants of health that impacted care today? How? (Homelessness, low income, unemployed, alcoholism, drug addiction, transportation, low edu. Level, literacy, decrease access to med. care, retirement, rehab)? @ -No Was there de-escalation of care discussed even if they declined (Discuss DNR or withdrawal of care, Hospice)? DNR status @ -No What co-morbidities impacted this encounter? (DM, HTN, Smoking, COPD, CAD, Cancer, CVA, ARF, Chemo, Hep., AIDS, mental health diagnosis, sleep apnea, morbid obesity)? @ -None Was patient admitted / discharged? Hospital course, mention meds given and route, prescriptions, significant lab abnormalities, going to OR and other pertinent info. @ -Discharged. Imaging studies as above. UA unremarkable. Patient discharged in stable condition. Advised follow up with ENT as needed. Advised follow-up to orthopedics in ENT. Provided follow-up to ENT and orthopedics. Discussed return precautions with patient and family who verbalizes agreement. Undiagnosed new problem with uncertain prognosis? @ -No Drug Therapy requiring intensive monitoring for toxicity (Heparin, Nitro, Insulin, Cardizem)? @ -No Were any procedures done? @ -Yes, splint placement please see procedure note for further details. Diagnosis/symptom? @ - right lateral orbital fracture, thumb sprain. Acute, or Chronic, or Acute on Chronic? @ -Acute Uncomplicated (without systemic symptoms) or Complicated (systemic symptoms)? @ -Uncomplicated Side effects of treatment? @ -No Exacerbation, Progression, or Severe Exacerbation? @ -No Poses a threat to life or bodily function? How? (Chest pain, [place], [place], pneumonia, PE, COPD, DKA, ARF, appy, cholecystitis, CVA, Diverticulitis, Homicidal, Suicidal, threat to staff... and all critical care pts) @ -No - Lab Data Lab Results 11/23/22 Range/Units 14:47 Urine Color Yellow Urine Appearance Clear (Clear) Urine pH 5.5 (5.0-8.0) Ur Specific [place] 1.016 (1.001-1.035) Urine Protein Negative (Negative) Urine Glucose (UA) Negative (Negative) Urine Ketones Negative (Negative) Urine Blood Negative (Negative) Urine Nitrite Negative (Negative) Urine Bilirubin Negative (Negative) Urine Urobilinogen <2.0 (<2.0) mg/dL Ur Leukocyte Esterase Negative (Negative) Disposition Clinical Impression: Orbital fracture, Thumb pain, Wrist pain Disposition: HOME SELF-CARE Condition: Good Additional Instructions: Please return to the Emergency Department if symptoms worsen or any other concerns. Is patient prescribed a controlled substance at d/c from ED?: No Referrals: Federico Skaggs MD [Primary Care Provider] - 1-2 days Que Hood MD [STAFF PHYSICIAN] - 1-2 days Ken Carbone DO [Doctor of Osteopathic Medicine] - 1-2 days
--- NOTE | 2022-11-23 14:01 | XR ---
EXAMINATION TYPE: XR chest 2V DATE OF EXAM: 11/23/2022 COMPARISON: 11/06/2021 TECHNIQUE: PA and lateral views submitted. HISTORY: Pain FINDINGS: The lungs are clear and there is no pneumothorax, pleural effusion, or focal pneumonia. Heart size normal and no overt failure. Osseous structures demonstrate hypertrophic and degenerative changes of the spine. There is a stimulator device overlying the thoracic spine. Surgical clips are seen overlyi ng the right upper quadrant. Joint arthropathy. IMPRESSION: 1. No acute process.
--- NOTE | 2022-11-23 14:39 | CT ---
EXAMINATION TYPE: CT brain cspine wo con CT DLP: 1370.3 mGycm, Automated exposure control for dose reduction was used. DATE OF EXAM: 11/23/2022 2:30 PM COMPARISON: None. CLINICAL INDICATION:Female, 72 years old with history of s/p fall cement head injury on asa; s/p fall cement head injury. Laceration above rt eye and bruising. TECHNIQUE: e Brain: Multiple axial CT images of the brain were obtained without IV contrast. Cspine: Axial CT images from the skull base to the inferior aspect of T2 we obtained without intraven ous contrast. Coronal and sagittal reformatted images were also reviewed. FINDINGS: Brain: Extra-axial spaces: No abnormal extra-axial fluid collections. Ventricular system: Within normal limits Cerebral parenchyma: No acute intraparenchymal hemorrhage or mass effect. The rogers-white junction is well differentiated. Cerebellum: Unremarkable. Mass effect: No evidence of midline shift. Intracranial vasculature: unremarkable Soft tissues: Right periorbital edema. Calvarium/osseous structures: Cortical buckling of the right lateral orbital wall best appreciated on series 301 image 6. No significant displacement. The extraconal and intraconal fat is relatively nikunj ntained. Paranasal sinuses and mastoid air cells: Clear. Visualized orbits: Bilateral aphakia Cervical spine: Fracture: None. Osseous structures: Multilevel degenerative disc disease changes with endplate spurring and disc oste ophyte complex's. Vertebral alignment: Within normal limits. Spinal canal/Neural Foramina: Disc osteophyte complexes at C5-C6, C6-C7 with at least mild spinal can al stenosis. No evidence for significant neural foraminal stenosis. Neck soft tissues: Prevertebral soft tissues are within normal limits. Other: The airway is patent. The lung apices are clear. IMPRESSION: 1. No acute intracranial process. 2. Right lateral orbital wall fracture without significant displacement. There is associated Right p eriorbital soft tissue edema. 3. No evidence of cervical spine fracture. 4. Moderate multilevel degenerative disc disease.
[2022-11-23 15:23] LABS: Appearance,Urine Clear (Clear); Bilirubin,Urine Negative (Negative); Blood,Urine Negative (Negative); Color,Urine Yellow; Glucose,Urine (UA) Negative (Negative); Ketones,Urine Negative (Negative); Leukocyte Esterase,Urine Negative (Negative); Nitrite,Urine Negative (Negative); PH, Urine 5.5 (5.0-8.0); Protein,Urine Negative (Negative); Specific Gravity,Urine 1.016 (1.001-1.035); Urobilinogen,Urine <2.0 mg/dL (<2.0)
--- NOTE | 2022-11-23 16:37 | XR ---
EXAMINATION TYPE: XR wrist complete LT DATE OF EXAM: 11/23/2022 4:30 PM INDICATION: Patient age:Female; 72 years old; Reason for study: r/o scaphoid fracture; COMPARISON: None TECHNIQUE: left wrist was examined in the. Frontal, navicular, lateral, and oblique. FINDINGS: No acute osseous pathology, joint dislocation, or joint effusion. No evidence of any soft tissue swelling is seen. Multifocal osteoarthrosis changes most pronounced at the first digit metacar pal phalangeal joint. IMPRESSION: No acute osseous pathology. No obvious displaced fracture of the scaphoid consider CT for confirmatio n if there remains concern.
[2022-11-23] MEDS ORDERED: ACETAMINOPHEN TAB 500 MG TAB PO STA (16:51)
[2022-11-23 18:11] VITALS: BP 105/76
== END 2022-11-23 18:11 | disposition home or self-care (01) ==
LOC: EC 12:14
DX: S02.85XA Fracture of orbit, unspecified, initial encounter for closed fracture (principal); M79.645 Pain in left finger(s); I10 Essential (primary) hypertension; E07.9 Disorder of thyroid, unspecified; F41.9 Anxiety disorder, unspecified; F32.A Depression, unspecified; Z79.890 Hormone replacement therapy; Z79.899 Other long term (current) drug therapy; Z79.82 Long term (current) use of aspirin; Z88.2 Allergy status to sulfonamides; Z88.8 Allergy status to other drugs, medicaments and biological substances; Z86.16 Personal history of COVID-19; Z88.5 Allergy status to narcotic agent; Z88.1 Allergy status to other antibiotic agents; Z23 Encounter for immunization; W18.30XA Fall on same level, unspecified, initial encounter
CPT/HCPCS: 29125; 70450; 71046; 72125; 81003; 90471; 90715; 99284

== ENCOUNTER → 2023-05-02 | Outpatient (CLI) | payer BC, MEDICARE ==
--- NOTE | 2023-05-02 12:52 | XR ---
EXAMINATION TYPE: XR shoulder complete RT DATE OF EXAM: 05/02/2023 COMPARISON: NONE HISTORY: Pain TECHNIQUE: Three views are submitted. FINDINGS: The osseous structures are intact. There is no acute fracture or dislocation. Severe hypertrophic ar thropathy AC joint. Basilar atelectasis or scarring in the right stimulator lead is seen overlying th e thoracic spine.. IMPRESSION: 1. Severe hypertrophic AC joint arthropathy correlate for impingement. Recommend follow-up MRI..
== END | disposition home or self-care (01) ==
LOC: RADXRMAIN 12:14
PROVIDERS: ATTEND Internal Medicine
DX: M19.011 Primary osteoarthritis, right shoulder (principal); M47.12 Other spondylosis with myelopathy, cervical region

== ENCOUNTER → 2023-05-27 | Outpatient (CLI) | payer BC, MEDICARE ==
--- NOTE | 2023-05-30 17:13 | MM ---
Reason for Exam: Screening (asymptomatic). Last mammogram was performed 1 year(s) and 5 month(s) ago. Patient History: Menarche at age 14. First Full-Term at age 23. Left ovary removed at age 43. Right ovary removed at age 43. Hysterectomy at age 43. Postmenopausal. Patient used Estrogen for 8 years. Patient used Hormonal Contraceptives for 10 years. Maternal aunt had breast cancer. Sister had breast cancer, age 68. Risk Values: Ana 5 year model risk: 3.2%. NCI Lifetime model risk: 7.2%. Prior Study Comparison: 07/04/2019 Bilateral Screening Mammogram, [facility]. 10/30/2020 Bilateral Screening Mammogram, [facility]. 01/08/2022 Bilateral MG 3D screening mammo w/cad, [facility]. Tissue Density: There are scattered fibroglandular densities. Findings: Analyzed By CAD. There is no suspicious group of microcalcifications or new suspicious mass in either breast. Overall Assessment: Negative, BI-RAD 1 Management: Screening Mammogram of both breasts in 1 year. See note below in regards to patient's increased 5 year Ana score. Patient should continue monthly self-breast exams. A clinical breast exam by your physician is recommended on an annual basis. This exam should not preclude additional follow-up of suspicious palpable abnormalities. Note on Ana scores and lifetime risk: 1. A Ana score greater than 3% is considered moderate risk. If this is the case, consider specialist referral to assess eligibility for a risk reducing agent. 2. If overall lifetime risk for the development of breast cancer is 20% or higher, the patient may qualify for future screening with alternating mammogram and breast MRI. Electronically signed and approved by: Adal Harris M.D. Radiologist
== END | disposition home or self-care (01) ==
LOC: RADMAMWWP 12:51
PROVIDERS: ATTEND Internal Medicine
DX: Z12.31 Encounter for screening mammogram for malignant neoplasm of breast (principal); Z80.3 Family history of malignant neoplasm of breast; Z78.0 Asymptomatic menopausal state
CPT/HCPCS: 77063; 77067

== ENCOUNTER 2023-06-03 08:38 | Day surgery (SDC) | payer BC, MEDICARE ==
[~2023-06-03 08:38] MED LIST changes: -Pre Op ABX Message 1 EACH MISC MISCELLANE ONE
[2023-06-03 09:41] VITALS: TEMP 97.1
[2023-06-03] MEDS ORDERED: LIDOCAINE 1% INJ 10MG/ML (20 ML MDV) ONE (10:08)
[2023-06-03] MEDS ORDERED: PROPOFOL 10 MG/ML 20 ML VIAL IV ONE (10:08)
--- NOTE | 2023-06-03 10:32 | P.PCN ---
Date of Procedure: 06/03/23 Procedure(s) Performed: BRIEF HISTORY: Patient is a 72-year-old pleasant white female scheduled for an elective colonoscopy as a part of screening for colon cancer. PROCEDURE PERFORMED: Colonoscopy. PREOPERATIVE DIAGNOSIS: Screening for colon cancer. IV sedation per Anesthesia. PROCEDURE: After informed consent was obtained, the patient, was brought into the endoscopy unit. IV sedation was administered by Anesthesia under continuous monitoring. Digital rectal examination was normal. Initially the Olympus CF-160 flexible video colonoscope was then inserted in the rectum, gradually advanced into the cecum without any difficulty. Careful examination was performed as the scope was gradually being withdrawn. Ileocecal valve and the appendiceal orifice were visualized and appeared normal. Prep was excellent. Mucosa of the cecum, ascending colon, transverse colon, descending colon, sigmoid colon, and rectum appeared normal. Scattered sigmoid diverticulosis. Retroflexion was performed in the rectum and no lesions were seen. The patient tolerated the procedure well. IMPRESSION: Normal-appearing colon from rectum to cecum with no evidence of colorectal neoplasia. Scattered sigmoid diverticulosis. RECOMMENDATIONS: Findings of this examination were discussed with the patient as well as her family. She was advised to have a repeat screening colonoscopy in 10 years..
[2023-06-03 10:55] VITALS: BP 123/72; PULSE 79; RESP 16
== END 2023-06-03 11:15 | disposition home or self-care (01) ==
LOC: ORWHC2ENDO 08:38
PROVIDERS: ATTEND Internal Medicine Gastroenterology
DX: Z12.11 Encounter for screening for malignant neoplasm of colon (principal); K57.30 Diverticulosis of large intestine without perforation or abscess without bleeding; I25.10 Atherosclerotic heart disease of native coronary artery without angina pectoris; I10 Essential (primary) hypertension; E07.9 Disorder of thyroid, unspecified; F32.A Depression, unspecified; F41.9 Anxiety disorder, unspecified; G62.9 Polyneuropathy, unspecified; K21.9 Gastro-esophageal reflux disease without esophagitis; R22.1 Localized swelling, mass and lump, neck; Z79.890 Hormone replacement therapy; Z79.82 Long term (current) use of aspirin; Z79.899 Other long term (current) drug therapy; Z98.890 Other specified postprocedural states
CPT/HCPCS: 45378; J2001; J2704

== ENCOUNTER → 2024-02-08 | Outpatient (CLI) | payer BC, MEDICARE ==
--- NOTE | 2024-02-08 18:08 | CT ---
EXAMINATION TYPE: CT cervical spine wo con CT DLP: 386.60 mGycm, Automated exposure control for dose reduction was used. DATE OF EXAM: 02/08/2024 1:50 PM COMPARISON: CT brain C-spine 11/23/2022. 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 Coronal and sagittal reformatted images were also reviewed. FINDINGS: Fracture: None. Osseous structures: Multilevel degenerative disc disease changes with endplate spurring and disc oste ophyte complex's. Vertebral alignment: Straightening of the normal cervical lordosis. Grade 1 anterolisthesis of C7 on T1 redemonstrated. Spinal canal/Neural Foramina: No significant central canal or neural foraminal stenosis at C2-C3. Central disc protrusion at C3-C4 with mild effacement of the anterior thecal sac. No significant neur oforaminal stenosis. Posterior disc osteophyte complex at C4-C5 with mild to moderate central canal stenosis. Bilateral fa cet arthropathy at this level with severe right and moderate left neural foraminal stenosis. Posterior disc osteophyte complex at C5-C6 with at least moderate central canal stenosis. Bilateral f acet arthropathy at this level with severe right and moderate left neural foraminal stenosis. Posterior disc osteophyte complex at C6-C7 with at least moderate central canal stenosis. Bilateral f acet arthropathy at this level with severe right and severe left neural foraminal stenosis. C6-C7 left paracentral disc protrusion with at least moderate central canal stenosis. Bilateral facet arthropathy with mild bilateral neural foraminal stenosis. Neck soft tissues: Prevertebral soft tissues are within normal limits. Other: The airway is patent. Mild biapical pleural parenchymal scarring. IMPRESSION: 1. No evidence of cervical spine fracture. 2. Advanced multilevel degenerative disc disease and facet arthropathy as described above. [facility], , 02/08/2024 6:06 PM
== END | disposition home or self-care (01) ==
LOC: RADCTMAIN 13:27
PROVIDERS: ATTEND Orthopaedic Surgery Orthopaedic Surgery of the Spine
DX: M54.12 Radiculopathy, cervical region
CPT/HCPCS: 72125

== ENCOUNTER → 2024-03-22 | Outpatient (CLI) | payer BC, MEDICARE ==
--- NOTE | 2024-03-22 17:09 | CA ---
Transthoracic Echo Report Name: Jessie Pena Age: 73 Gender: F : 1950 Exam Date: 03/22/2024 14:33 Exam Location: [facility] Ht (in): 60 Wt (lb): 137 Ordering Physician: Federico Skaggs MD Attending/Referring Phys: Melita Mohr MD ([id number]) Perinatology Physician Stormy Dove RDCS Procedure CPT: Indications: I34.0 NONRHEUMATIC MITRAL (VALVE) INSUFFICI 165.23 Cardiac Hx: Technical Quality: Good Contrast 1: Total Dose (mL): Contrast 2: Total Dose (mL): MEASUREMENTS (Male / Female) Normal Values 2D ECHO LV Diastolic Diameter PLAX 4.0 cm 4.2 - 5.9 / 3.9 - 5.3 cm LV Systolic Diameter PLAX 2.5 cm IVS Diastolic Thickness 0.9 cm 0.6 - 1.0 / 0.6 - 0.9 cm LVPW Diastolic Thickness 0.9 cm 0.6 - 1.0 / 0.6 - 0.9 cm LV Relative Wall Thickness 0.5 RV Internal Dim ED PLAX 2.8 cm LA Systolic Diameter LX 2.7 cm 3.0 - 4.0 / 2.7 - 3.8 cm LV Diastolic Volume MOD 4C 58.4 cm??? LV Systolic Volume MOD 4C 27.4 cm??? LV Ejection Fraction MOD 4C 53.1 % LV Cardiac Index MOD 4C 1572.1 cm???/min???m??? LV Diastolic Length 4C 6.8 cm LV Systolic Length 4C 5.8 cm LV Diastolic Volume MOD 2C 59.9 cm??? LV Systolic Volume MOD 2C 29.8 cm??? LV Ejection Fraction MOD 2C 50.2 % LV Cardiac Index MOD 2C 1524.0 cm???/min???m??? LV Diastolic Length 2C 7.1 cm LV Systolic Length 2C 5.7 cm M-MODE Aortic Root Diameter MM 2.7 cm LA Systolic Diameter MM 2.1 cm LA Ao Ratio MM 0.8 DOPPLER Mitral E Point Velocity 91.8 cm/s Mitral A Point Velocity 111.7 cm/s Mitral E to A Ratio 0.8 MV Deceleration Time 245.1 ms MV E' Velocity 7.1 cm/s Mitral E to MV E' Ratio 13.0 TR Peak Velocity 190.8 cm/s TR Peak Gradient 14.6 mmHg Right Ventricular Systolic Press 25.1 mmHg FINDINGS Left Ventricle Left ventricular ejection fraction is estimated at 55-60 %. Left ventricular cavity size normal. Left ventricular wall thickness normal. Right Ventricle Normal right ventricular size and function. Right ventricular systolic pressure within normal limits. Right Atrium Normal right atrial size. No right atrial thrombus or mass seen. Left Atrium Normal left atrial size. No left atrial thrombus or mass present. Mitral Valve Structurally normal mitral valve. No mitral stenosis, regurgitation or prolapse. Aortic Valve Trileaflet aortic valve. No aortic valve stenosis or regurgitation. Tricuspid Valve Structurally normal tricuspid valve. No tricuspid stenosis, regurgitation or prolapse. Pulmonic Valve Structurally normal pulmonic valve. Trace pulmonic regurgitation. Pericardium No pericardial or pleural effusion. Aorta Normal size aortic root and proximal ascending aorta. CONCLUSIONS Normal LV function Mild tricuspid regurgitation Previewed by: Dr. Te Lopez MD (Electronically Signed) Final Date: 22 March 2024 17:08
--- NOTE | 2024-03-23 09:38 | US ---
EXAMINATION TYPE: US carotid duplex BILAT DATE OF EXAM: 03/22/2024 COMPARISON: US 2021 CLINICAL INDICATION: Female, 73 years old with history of I63.23 CAROTID STENOSIS; Additional History: .... TECHNIQUE: Grayscale, color Doppler and spectral Doppler evaluation of the bilateral carotid systems and vertebral arteries. Indirect Doppler criteria was utilized. FINDINGS: EXAM MEASUREMENTS: RIGHT: Peak Systolic Velocity (PSV) cm/sec ----- Right CCA: 89.6 ----- Right ICA: 84.5 ----- Right ECA: 83.4 ICA/CCA ratio: 0.9 RIGHT: End Diastole cm/sec ----- Right CCA: 22.7 ----- Right ICA: 32.5 ----- Right ECA: 13.6 LEFT: Peak Systolic Velocity (PSV) cm/sec ----- Left CCA: 83.2 ----- Left ICA: 89.2 ----- Left ECA: 97.0 ICA/CCA ratio: 1.1 LEFT: End Diastole cm/sec ----- Left CCA: 20.1 ----- Left ICA: 28.5 ----- Left ECA: 13.1 VERTEBRALS (direction of flow): Right Vertebral: Antegrade Left Vertebral: Antegrade Rhythm: Normal Color Doppler imaging shows patency with blood flow throughout the carotid artery. Spectral waveforms are within normal limits. IMPRESSION: 1. No significant flow-limiting stenosis bilateral carotid bifurcations based on velocities Criteria for Assigning % of Stenosis / Diameter reduction (Estimation based on the indirect measurements of the internal carotid artery velocities (ICA PSV). 1. Normal (no stenosis)=ICA PSV < 125 cm/s: ratio < 2.0: ICA EDV<40 cm/s. 2. Less than 50% stenosis=ICA PSV < 125 cm/s: ratio < 2.0: ICA EDV<40 cm/s. 3. 50 to 69% stenosis=ICA PSV of 125 to 230 cm/s: ration 2.0 ? 4.0: ICA EDV 40-100 cm/s. 4. Greater than 70% stenosis to near occlusion= ICA PSV > 230 cm/s: ratio > 4.0: ICA EDV > 100 cm/s. 5. Near occlusion= ICA PSV velocities may be low or undetectable: variable ratio and ICA EDV. 6. Total occlusion=unable to detect flow. [facility], , 03/23/2024 9:36 AM
== END | disposition home or self-care (01) ==
LOC: RADECHMAIN 14:17
PROVIDERS: ATTEND Internal Medicine
DX: I08.1 Rheumatic disorders of both mitral and tricuspid valves (principal); I65.23 Occlusion and stenosis of bilateral carotid arteries
CPT/HCPCS: 93306; 93880

== ENCOUNTER → 2024-04-20 | Outpatient (CLI) | payer BC, MEDICARE ==
--- NOTE | 2024-04-20 13:10 | XR ---
EXAMINATION TYPE: XR chest 2V DATE OF EXAM: 04/20/2024 12:37 PM COMPARISON: Chest radiographs from 11/23/2022 CLINICAL INDICATION: Female, 73 years old with history of R05.1 Acute Cough; TECHNIQUE: XR chest 2V Frontal and lateral views of the chest. FINDINGS: Lungs/Pleura: There is no evidence of pleural effusion, focal consolidation, or pneumothorax. Pulmonary vascularity: Unremarkable. Heart/mediastinum: Cardiomediastinal silhouette is unremarkable. Musculoskeletal: No acute osseous pathology. Other findings: Nerve leads project over the spine. IMPRESSION: No acute cardiopulmonary disease/process. [facility], , 04/20/2024 1:08 PM
== END | disposition home or self-care (01) ==
LOC: RADXRMAIN 12:23
PROVIDERS: ATTEND Internal Medicine
DX: R05.1 Acute cough (principal)
CPT/HCPCS: 71046

== ENCOUNTER → 2024-09-19 | Outpatient (CLI) | payer BC, MEDICARE ==
--- NOTE | 2024-09-20 07:49 | MM ---
Reason for Exam: Screening (asymptomatic). Last mammogram was performed 1 year(s) and 4 month(s) ago. Indicated Problems: Pain of the right side (Global) for 6 Month(s). Patient History: Menarche at age 14. First Full-Term at age 23. Left ovary removed at age 43. Right ovary removed at age 43. Hysterectomy at age 43. Postmenopausal. Patient used Estrogen for 8 years. Patient used Hormonal Contraceptives for 10 years. Maternal aunt had breast cancer. Sister had breast cancer, age 68. Risk Values: Ana 5 year model risk: 3.2%. NCI Lifetime model risk: 6.8%. Prior Study Comparison: 10/30/2020 Bilateral Screening Mammogram, [facility]. 01/08/2022 Bilateral MG 3D screening mammo w/cad, [facility]. 05/27/2023 Bilateral MG 3D screening mammo w/cad, [facility]. Tissue Density: The breasts are heterogeneously dense, which may obscure small masses. Findings: Analyzed By CAD. Right breast: There is no suspicious group of microcalcifications or new suspicious mass. Benign-appearing calcifications right breast. Left breast: There is no suspicious group of microcalcifications or new suspicious mass. Benign-appearing calcifications left breast. Overall Assessment: Benign, BI-RAD 2 Management: Screening Mammogram of both breasts in [address] [facility] will attempt to contact patient to return for supplemental views and ultrasound if indicated. Patient should continue monthly self-breast exams. A clinical breast exam by your physician is recommended on an annual basis. This exam should not preclude additional follow-up of suspicious palpable abnormalities. Note on Ana scores and lifetime risk: 1. A Ana score greater than 3% is considered moderate risk. If this is the case, consider specialist referral to assess eligibility for a risk reducing agent. 2. If overall lifetime risk for the development of breast cancer is 20% or higher, the patient may qualify for future screening with alternating mammogram and breast MRI. [facility], , 09/20/2024 7:46 AM. Electronically signed and approved by: Salvatore Wilson DO
== END | disposition home or self-care (01) ==
LOC: RADMAMWWP 14:56
PROVIDERS: ATTEND Internal Medicine
DX: Z12.31 Encounter for screening mammogram for malignant neoplasm of breast (principal); R92.333 Mammographic heterogeneous density, bilateral breasts; Z78.0 Asymptomatic menopausal state; Z80.3 Family history of malignant neoplasm of breast; Z92.0 Personal history of contraception
CPT/HCPCS: 77063; 77067